=== PATIENT | female | born 1950 | race Caucasian/White ===

== ENCOUNTER 2019-03-23 12:04 | Outpatient (REF) | payer OTHER, SELFPAY ==
--- NOTE | 2019-03-23 10:45 | PAPFT_PTH ---
PATIENT: Renu Mackey LOC: [facility] U#:[id number] AGE/SX: 68/F ROOM: RE03/23/[address]: CHRISTIANO Enriquez : 1950 BED: DIS: 03/23/2019 SPEC #: [id number] RECD: 03/23/19 17:48 STATUS: FOZIA RELauren #: [id number] LORELEI: 03/23/19 10:[address]: Leeanne Valverde DEPT: [facility] Cytology RECD BY: Chantelle Agee Tissues: 1 - CX/ENDOCX FOR PAP SMEARS Procedures: PAP THIN PREP/UVM Screening Comments: [id number]
== END 2019-03-23 12:24 ==
LOC: LBN 12:04
PROVIDERS: Visit Provider Nurse Practitioner Family
DX: Z12.4 Encounter for screening for malignant neoplasm of cervix (principal)
CPT/HCPCS: 88142

== ENCOUNTER 2020-04-01 02:19 | Outpatient (CLI) | payer OTHER, SELFPAY ==
--- NOTE | 2020-04-01 12:00 | DI.MAMMO_ITS ---
EXAM: MG MAMMO SCREENING CLINICAL HISTORY: screening TECHNIQUE: Bilateral full field digital CC and MLO mammographic images were obtained with 3D tomosyn thesis and utilizing computer aided detection (CAD). COMPARISON: Available for comparison. FINDINGS: Masses/Architectural Distortion: None seen. Microcalcifications: No suspicious pleomorphic-type are seen. Skin Thickening/Nipple Retraction: None. IMPRESSION: 1. No significant interval change with no specific features of malignancy noted. 2. Unless there is more urgent need, screening mammography is recommended, as per [employer] guidelines. BI-RADS Category 1 - Negative Breast Density - Category B - Scattered areas of fibroglandular density A negative radiographic report should not delay biopsy if a dominant or clinically suspicious mass is present. Up to ten percent of cancers are not identified on mammography. A negative report may reinforce clinical impression. Adenosis and dense breasts may obscure an underlying neoplasm. False positive reports average 6 to 10%. Patient will receive a letter notifying them of these results.
== END 2020-04-01 02:39 ==
PROVIDERS: PCP Nurse Practitioner Family; Visit Provider Nurse Practitioner Family
DX: Z12.31 Encounter for screening mammogram for malignant neoplasm of breast (principal)
CPT/HCPCS: 77063; 77067

== ENCOUNTER 2021-03-31 11:22 | Outpatient (REF) | payer OTHER, SELFPAY ==
--- NOTE | 2021-03-31 10:45 | PAPFT_PTH ---
PATIENT: Renu Mackey LOC: [facility] U#:[id number] AGE/SX: 70/F ROOM: RE03/31/[address]: CHRISTIANO Enriquez : 1950 BED: DIS: 03/31/2021 SPEC #: [id number] RECD: 03/31/21 17:59 STATUS: FOZIA RELauren #: [id number] LORELEI: 03/31/21 10:[address]: Leeanne Valverde DEPT: [facility] Cytology RECD BY: Chantelle Agee Tissues: 1 - CX/ENDOCX FOR PAP SMEARS Procedures: PAP THIN PREP/UVM Screening HPV DNA PROBE Comments: [id number]
== END 2021-03-31 11:23 | disposition home or self-care (01) ==
LOC: LBN 11:22
PROVIDERS: PCP Nurse Practitioner Family; Visit Provider Nurse Practitioner Family
DX: Z12.4 Encounter for screening for malignant neoplasm of cervix (principal); Z11.51 Encounter for screening for human papillomavirus (HPV); Z01.419 Encounter for gynecological examination (general) (routine) without abnormal findings
CPT/HCPCS: 88142; 87624

== ENCOUNTER 2021-04-16 00:46 | Outpatient (CLI) | payer OTHER, SELFPAY ==
--- NOTE | 2021-04-16 07:50 | DI.MAMMO_ITS ---
Exam(s) MAMMO SCREENING EXAM: MAMMO SCREENING CLINICAL HISTORY: screening. TECHNIQUE: Bilateral full field digital CC and MLO mammographic images were obtained with 3D tomosyn thesis and utilizing computer aided detection (CAD). COMPARISON: Prior mammograms dating back to 2012, the most recent being March 2020. FINDINGS: There has been no significant change in the appearance and distribution of the fibroglandular tissue There are no new spiculated masses nor malignant appearing microcalcification groups. Benign microcalcifications left breast are again noted. There is no significant architectural distortion nor skin thickening-retraction. IMPRESSION: Stable benign findings. No radiographic evidence of malignancy. BI-RADS Category 2 - Benign Findings Breast Density - Category B - Scattered areas of fibroglandular density Breast density Category C or D implies that the patient has dense breast tissue. Dense breast tissue can make it harder to find cancer on a mammogram. Dense breast tissue is also associated with an incr eased risk of breast cancer. This information about the result of the mammogram report was provided to the patient to raise their awareness. Use this report when you speak with the patient about their risks for breast cancer, which includes their family history. At that time, you may recommend additional screening tests (Ultrasoun d or MRI) as these tests may add significant information. A negative radiographic report should not delay biopsy if a dominant or clinically suspicious mass is present. Up to ten percent of cancers are not identified on mammography. A negative report may reinforce clinical impression. Adenosis and dense breasts may obscure an underlying neoplasm. False positive reports average 6 to 10%. Patient will receive a letter notifying them of these results.
== END 2021-04-16 01:06 ==
PROVIDERS: PCP Nurse Practitioner Family; Visit Provider Nurse Practitioner Family
DX: Z12.31 Encounter for screening mammogram for malignant neoplasm of breast (principal); R92.8 Other abnormal and inconclusive findings on diagnostic imaging of breast
CPT/HCPCS: 77063; 77067

== ENCOUNTER 2022-04-03 10:02 | Outpatient (REF) | payer OTHER, SELFPAY ==
--- NOTE | 2022-04-03 09:10 | PAPFT_PTH ---
PATIENT: Renu Mackey LOC: [facility] U#:[id number] AGE/SX: 71/F ROOM: RE04/03/[address]: CHRISTIANO Enriquez : 1950 BED: DIS: 04/03/2022 SPEC #: [id number] RECD: 04/03/22 12:53 STATUS: FOZIA RELauren #: [id number] LORELEI: 04/03/22 09:[address]: Leeanne Valverde DEPT: [facility] Cytology RECD BY: Chantelle Agee Tissues: 1 - CX/ENDOCX FOR PAP SMEARS Procedures: PAP THIN PREP/UVM Screening HPV DNA PROBE Comments: [id number]
== END 2022-04-03 10:03 | disposition home or self-care (01) ==
LOC: LBN 10:02
PROVIDERS: PCP Nurse Practitioner Family; Visit Provider Nurse Practitioner Family
DX: Z12.4 Encounter for screening for malignant neoplasm of cervix (principal); Z11.51 Encounter for screening for human papillomavirus (HPV)
CPT/HCPCS: 88142; 87624

== ENCOUNTER → 2022-05-07 01:23 | Outpatient (CLI) | payer OTHER, SELFPAY ==
--- NOTE | 2022-05-07 08:30 | DI.MAMMO_ITS ---
Exam(s) MAMMO SCREENING EXAM: MAMMO SCREENING CLINICAL HISTORY: screening TECHNIQUE: Bilateral full field digital CC and MLO mammographic images were obtained with 3D tomosyn thesis and utilizing computer aided detection (CAD). COMPARISON: Available for comparison. FINDINGS: Masses/Architectural Distortion: None seen. Microcalcifications: No suspicious pleomorphic-type are seen. Skin Thickening/Nipple Retraction: None. IMPRESSION: 1. No significant interval change with no specific features of malignancy noted. 2. Unless there is more urgent need, screening mammography is recommended, as per [employer] guidelines. BI-RADS Category 1 - Negative Breast Density - Category B - Scattered areas of fibroglandular density Breast density category C or D implies that the patient has dense breast tissue. Dense breast tissue is very common and is not abnormal but dense breast tissue can make it harder to find cancer on a ma mmogram. Also, dense breast tissue may increase their breast cancer risk. This information about the result of the mammogram report was provided to the patient to raise their awareness. Use this report when you speak with the patient about their risks for breast cancer, which includes their family hist ory. At that time, you may recommend for more screening tests (Ultrasound or MRI) as they might be us eful based on their risk. A negative radiographic report should not delay biopsy if a dominant or clinically suspicious mass is present. Up to ten percent of cancers are not identified on mammography. A negative report may reinforce clinical impression. Adenosis and dense breasts may obscure an underlying neoplasm. False positive reports average 6 to 10%. Patient will receive a letter notifying them of these results.
== END ==
PROVIDERS: PCP Nurse Practitioner Family; Visit Provider Nurse Practitioner Family
DX: Z12.31 Encounter for screening mammogram for malignant neoplasm of breast (principal)
CPT/HCPCS: 77063; 77067

== ENCOUNTER 2023-04-23 11:10 | Outpatient (REF) | payer OTHER, MEDICARE, SELFPAY ==
--- NOTE | 2023-04-23 10:30 | PAPFT_PTH ---
PATIENT: Renu Mackey LOC: [facility] U#:[id number] AGE/SX: 72/F ROOM: RE04/23/[address]: Emma Mei DO : 1950 BED: DIS: 04/23/2023 SPEC #: [id number] RECD: 04/23/23 13:11 STATUS: FOZIA REQ #: [id number] LORELEI: 04/23/23 10:[address]: Emma Mei DEPT: [facility] Cytology RECD BY: Chantelle Agee Tissues: 1 - CX/ENDOCX FOR PAP SMEARS Procedures: PAP THIN PREP/UVM Screening HPV DNA PROBE Comments: [id number]
== END 2023-04-23 11:11 | disposition home or self-care (01) ==
LOC: LBN 11:10
PROVIDERS: Visit Provider Obstetrics & Gynecology
DX: Z12.4 Encounter for screening for malignant neoplasm of cervix (principal); Z11.51 Encounter for screening for human papillomavirus (HPV)
CPT/HCPCS: 88142; 87624

== ENCOUNTER 2023-05-10 02:25 | Outpatient (CLI) | payer MEDICARE, SELFPAY ==
--- NOTE | 2023-05-10 07:45 | DI.MAMMO_ITS ---
Exam(s) MAMMO SCREENING EXAM: MAMMO SCREENING CLINICAL HISTORY: screening TECHNIQUE: Mammograms were interpreted according to the usual protocol including computer analysis w [employer] CAD system, tomosynthesis and C-view imaging. COMPARISON: 2013 through 2021 FINDINGS: The breasts are composed of scattered fibroglandular densities, Breast Density category B. No suspicious masses or suspicious microcalcifications are seen. No skin thickening or abnormal axillary lymph nodes are seen. There has been no significant change from prior exams. IMPRESSION: BI-RADS Category 1, Negative mammogram Yearly screening mammography is recommended. Breast Density - Category B, scattered fibroglandular densities. A negative radiographic report should not delay biopsy if a dominant or clinically suspicious mass is present. Up to ten percent of cancers are not identified on mammography. A negative report may reinforce clinical impression. Adenosis and dense breasts may obscure an underlying neoplasm. False positive reports average 6 to 10%. Patient will receive a letter notifying them of these results.
== END 2023-05-10 02:45 ==
LOC: DI 02:26
PROVIDERS: Visit Provider Obstetrics & Gynecology
DX: Z12.31 Encounter for screening mammogram for malignant neoplasm of breast (principal)
CPT/HCPCS: 77063; 77067

== ENCOUNTER → 2024-02-07 10:27 | Outpatient (BNVA) | payer MEDICARE, SELFPAY | PROVIDERS: PCP Legal Medicine; Referring Provider Legal Medicine; Visit Provider Podiatrist | DX: L84 Corns and callosities (principal); B35.1 Tinea unguium; Q82.8 Other specified congenital malformations of skin; M25.572 Pain in left ankle and joints of left foot | CPT/HCPCS: 17110; 99203 ==

== ENCOUNTER → 2024-05-11 01:30 | Outpatient (CLI) | payer MEDICARE, SELFPAY ==
--- OUTSIDE RECORDS SUMMARY | 2024-05-11 01:37 | XMS_ITS | Encounter Summary ---
Author Organization [facility] Address [facility] [place] [address] Care Team Providers Care Crime Prevention Worker Name Role Phone Ann Perdue MD Primary Care Provider [phone] Encounter Details Date Type Department Care Team (Late st Contact Info) Description 08/28/2022 Telephone Dermatology at [facility] [address] [place] [address] Rupert Ye MD [facility] [place] [address] Social History Tobacco Use Types Packs/Day Years Used Date Smoking Tobacco: Never Assessed Sex and Gender Information Value Date Recorded Sex Assigned at Not on file Gender Identity Not on file Sexual Orientation Not on file documented as of this encounter Miscellaneous Notes * Telephone Encounter - Mary Ellen Lopez LPN - 08/28/2022 1:41 PM EDT Mohs consultation and preoperative note (H&P) Patient Name: Renu Mackey Age: 71 y.o. Date of : 1950 Today's Date: 08/28/2022 REFERRING PROVIDER: CC: Mohs micrographic surgery for treatment of a cutaneous tumor HPI: Renu Mackey is a 71 y.o. female presenting for biopsy-proven Melanoma in situ, present at the peripheral specimen edge and deep edge along hair ??follicles, arising in association with nevus location on the Left Moneta The dermatologic preoperative information sheet was reviewed with pertinent positive and negative as below. DERMATOLOGIC PRE-OPERATIVE EVALUATION AND REVIEW OF SYSTEMS She has had her Covid Vaccine and Boosters History of Mohs surgery-No Pacemaker/Defibrillator-No Joint replacement or other implantable devices (e.g. Cochlear implant)-No Do you take a blood thinner-She has been taking Motrin nightly for Arthritis in her knees. History of organ transplant-No History of artificial valve or stroke-No History of liver disease or bleeding disorder-No Do you have any medical problems that may affect your upcoming surgery-No Do you have any concerns regarding your upcoming surgery-No We ask patients to discontinue Fish oil/Multivitamin/Vit E/?? supplements and natural medicines not prescribed by a physician 1 week prior to surgery. SOCIAL HISTORY: Makes Own Decisions Yes Hearing aid or other devices: No Relevant travel history or future plans: No Tobacco use (amount per day, type of tobacco):No Do you have any physical limitations that may affect your surgery-No ALLERGIES: Allergies reviewed MEDICATIONS: Medications reviewed documented in this encounter Plan of Treatment Upcoming Encounters Date Type Department Care Team (Late st Contact Info) Description 12/11/2024 2:00 PM EST Office Visit Dermatology at [address] [address] Bianka Jaffe MD [facility] [address] [place] [address] documented as of this encounter Visit Diagnoses Not on filedocumented in this encounter Care Teams Crime Prevention Worker Relationship Specialty Start Date End Date Ann Perdue MD [facility] [address] PCP - General General Internal Medicine 06/25/22 documented as of this encounter
--- OUTSIDE RECORDS SUMMARY | 2024-05-11 01:37 | XMS_ITS | Encounter Summary ---
Author Organization [facility] Address [facility] [place] [address] Care Team Providers Care Tin Can Feeder Name Role Phone Ann Perdue MD Primary Care Provider [phone] Encounter Details Date Type Department Care Team (Late st Contact Info) Description 07/13/2022 Telephone Dermatology at [facility] [address] [place] [phone] Elizabeth Baca MD [facility] DR JAMEE [place] [address] Social History Tobacco Use Types Packs/Day Years Used Date Smoking Tobacco: Never Assessed Sex and Gender Information Value Date Recorded Sex Assigned at Not on file Gender Identity Not on file Sexual Orientation Not on file documented as of this encounter Miscellaneous Notes * Telephone Encounter - Suzanne Saldana - 07/13/2022 1:40 PM EDT I left a message for Renu Brianne Mcakey to get her scheduled for a 3 month FSE and LN2 of an AK with . * Telephone Encounter - Suzanne Saldana - 07/13/2022 1:39 PM EDT ----- Message from Elizabeth Baca MD sent at 07/02/2022 2:24 PM EDT ----- Called patient to discuss biopsy results which showed: DIAGNOSIS A - L eft voodoo, skin shave biopsy: - ??Melanoma in situ, present at the peripheral specimen edge and deep edge along hair ??follicles, arising in association with nevus (see Discussion) B - R ight lateral lower eyelid, skin shave biopsy: - Pigmented ??actinic keratosis/lentigo Discussed findings with patient which showed MIS at site A and AK at site B. Recommend Mohs at siteA and LN2 at site B. Patient agreable to plan. Will place referral today. Will plan for 3 month FBSE and will also need LN2 to site B- please schedule documented in this encounter Plan of Treatment Upcoming Encounters Date Type Department Care Team (Late st Contact Info) Description 12/11/2024 2:00 PM EST Office Visit Dermatology at [facility] [address] [place] [address] Bianka Jaffe MD [facility] DR JAMEE [place] [address] documented as of this encounter Visit Diagnoses Not on filedocumented in this encounter Care Teams Tin Can Feeder Relationship Specialty Start Date End Date Ann Perdue MD [facility] [place] [address] PCP - General General Internal Medicine 06/25/22 documented as of this encounter
--- OUTSIDE RECORDS SUMMARY | 2024-05-11 01:37 | XMS_ITS | Encounter Summary ---
Author Organization [facility] Address [facility] [place] [address] Care Team Providers Care Ship/Rec/Doc Control Name Role Phone Ann Perdue MD Primary Care Provider [phone] Encounter Details Date Type Department Care Team (Latest Contact Info) Description 08/31/2022 Travel Social History Tobacco Use Types Packs/Day Years Used Date Smoking Tobacco: Never Assessed Sex and Gender Information Value Date Recorded Sex Assigned at Not on file Gender Identity Not on file Sexual Orientation Not on file documented as of this encounter Plan of Treatment Upcoming Encounters Date Type Department Care Team (Late st Contact Info) Description 12/11/2024 2:00 PM EST Office Visit Dermatology at [facility] [address] [place] [address] Bianka Jaffe MD [facility] [address] [place] [address] documented as of this encounter Visit Diagnoses Not on filedocumented in this encounter Care Teams Ship/Rec/Doc Control Relationship Specialty Start Date End Date Ann Perdue [place] [address] [place] [address] PCP - General General Internal Medicine 06/25/22 documented as of this encounter
--- OUTSIDE RECORDS SUMMARY | 2024-05-11 01:37 | XMS_ITS | Encounter Summary ---
Author Organization [facility] Address [facility] [place] [address] Care Team Providers Care Tuna Purse Seiner Name Role Phone Ann Perdue MD Primary Care Provider [phone] Encounter Details Date Type Department Care Team (Latest Contact Info) Description 09/30/2022 Travel Social History Tobacco Use Types Packs/Day [...] 2:00 PM EST Office Visit Dermatology at [facility] [address] [place] [address] Bianka Jaffe MD [facility] [address] [place] [address] documented as of this encounter Visit Diagnoses Not on filedocumented in this encounter Care Teams Tuna Purse Seiner Relationship Specialty Start Date End Date Ann Perdue [place] [address] [place] [address] PCP - General General Internal Medicine 06/25/22 documented as of this encounter
--- OUTSIDE RECORDS SUMMARY | 2024-05-11 01:37 | XMS_ITS | Encounter Summary ---
Author Organization [facility] Address [facility] [address] Care Team Providers Care Road Consultant Name Role Phone Ann Perdue MD Primary Care Provider [phone] Encounter Details Date Type Department Care Team (Late st Contact Info) Description 08/10/2023 Telephone Dermatology at [facility] [address] [address] Collette Ocampo Social History Tobacco Use Types Packs/Day Years [...] 2:00 PM EST Office Visit Dermatology at [facility] [address] [place] [phone] Bianka Jaffe MD [facility] [address] [place] [address] documented as of this encounter Visit Diagnoses Not on filedocumented in this encounter Care Teams Road Consultant Relationship Specialty Start Date End Date Ann Perdue MD [facility] [place] [address] PCP - General General Internal Medicine 06/25/22 documented as of this encounter
--- OUTSIDE RECORDS SUMMARY | 2024-05-11 01:37 | XMS_ITS | Encounter Summary ---
Author Organization [facility] Address [facility] [place] [address] Care Team Providers Care Dip Painter Name Role Phone Ann Perdue MD Primary Care Provider [phone] Encounter Details Date Type Department Care Team (Latest Contact Info) Description 02/13/2023 Travel Social History Tobacco Use Types Packs/Day [...] 2:00 PM EST Office Visit Dermatology at [facility] [address] [place] [address] Bianka Jaffe MD [facility] [address] [place] [address] documented as of this encounter Visit Diagnoses Not on filedocumented in this encounter Care Teams Dip Painter Relationship Specialty Start Date End Date Ann [place] [address] [place] [address] PCP - General General Internal Medicine 06/25/22 documented as of this encounter
--- OUTSIDE RECORDS SUMMARY | 2024-05-11 01:37 | XMS_ITS | Encounter Summary ---
Author Organization [facility] Address [facility] [place] [address] Care Team Providers Care Head Operator Name Role Phone Ann Perdue MD Primary Care Provider [phone] Encounter Details Date Type Department Care Team (Latest Contact Info) Description 09/13/2023 Travel Social History Tobacco Use Types Packs/Day [...] 2:00 PM EST Office Visit Dermatology at [facility] [address] [place] [address] Bianka Jaffe MD [facility] [address] [place] [address] documented as of this encounter Visit Diagnoses Not on filedocumented in this encounter Care Teams Head Operator Relationship Specialty Start Date End Date Ann Perdue [place] [address] [place] [address] PCP - General General Internal Medicine 06/25/22 documented as of this encounter
--- OUTSIDE RECORDS SUMMARY | 2024-05-11 01:37 | XMS_ITS | Encounter Summary ---
Author Organization [facility] Address [facility] [place] [address] Care Team Providers Care Mat Sewer Name Role Phone Ann Perdue MD Primary Care Provider [phone] Encounter Details Date Type Department Care Team (Late st Contact Info) Description 09/30/2022 8:20 AM EST Office Visit Dermatology at [facility] [address] [place] [address] Elizabeth Baca MD [facility] [place] [address] Actinic keratoses; Seborrheic keratoses; Multiple nevi; Lentigines; Ontiveros angioma; History of melanoma in situ; Neoplasm of unspecified behavior of bone, soft tissue, and skin Social History Tobacco Use Types Packs/Day Years Used Date Smoking Tobacco: Never Assessed Sex and Gender Information Value Date Recorded Sex Assigned at Not on file Gender Identity Not on file Sexual Orientation Not on file documented as of this encounter Progress Notes * Elizabeth Baca - 09/30/2022 8:20 AM EST Images from the original note were not included. DEPARTMENT OF DERMATOLOGY Medical Dermatology Clinic Provider: Elizabeth Baca MD Patient's preferred name Renu Preferred contact method for results [x]Phone []myD-H []Letter Detailed phone message OK? Yes Are there any other people with whom we may discuss your care? No Past Medical History Date, location, treatment Melanoma Yes - 06/25/22; MIS left yazidism s/p MOHs Dysplastic nevi No SCC No BCC No AKs No UV Exposure & Protection + history of tanning bed use + history of blistering sunburn Other relevant past medical history No Family History Details Melanoma No NMSC Yes - Brother Other relevant family history No Social History Occupation: Hobbies: Other: Pre-Procedure Screening Details Allergy to lidocaine, epinephrine, Dermabond, chlorhexidine, or adhesives No Bleeding disorder or blood thinners No Implanted devices (Pacemaker, defibrillator, deep brain stimulator, cochlear implant) No History of Present Illness: Renu Mackey is a 71 y.o. Patient returns to clinic today for a full skin exam. Patient denies any specific skin concerns today; no lesions that are new, changing or symptomatic.. Last visit at Dermatology: 06/25/2022 Last visit with this provider: 06/25/2022 Medications: Reviewed in eD-H Allergies: Reviewed in eD-H Skin Examination: Full skin examination: Patient asked to undress to their comfort level. Verbalized that the provider's preference is that patient remove all clothing and that the provider will not examine areas patient elects to keep covered. Examination of the scalp, hair, head, face, ears, neck, chest, axillae, abdomen, back, buttocks, and upper and lower extremities was normal with the exception of the findings below. Genitalia not examined. Assessment/Plan #. Nevus R/O Atypia - 1cm brown macule on the mid central back (Figure 1). - Recommended a skin biopsy to confirm/clarify the nature of the skin lesion. After discussion of potential risks (scarring, bleeding, infection) and recurrence, patient agreed to proceed. - Patient denies known allergies to lidocaine and epinephrine. Procedure: Skin shave biopsy Location: Mid Central back Time of procedure: 8:20 AM Discussed indications for procedure and expectations including risks and benefits. Verbal consent obtained. Time out performed. Skin prepped with alcohol. Local anesthesia with 1% xylocaine, 1/100,000 epinephrine. A sample of the lesion was removed by shave technique to the level of the dermis and s ubmitted to Pathology. Hemostasis obtained. There were no complications; patient tolerated the procedure well. Wound dressed. Post-procedure expectations, wound care and activity restrictions reviewed. - Follow-up based on pathology results. #. Actinic Keratoses - Ill-defined gritty papules on the right lateral lower eyelid x1, and on the nasal tip x1. - Explained premalignant potential of these lesions. - Discussed treatment with cryotherapy. Patient elects to proceed with cryotherapy today. - Instructed patient to return to clinic for re-evaluation if lesion(s) does not resolve as expected with this treatment. Procedure: Destruction of lesion(s) with cryotherapy (LN2). Location(s): As noted above. Number: 2 Discussed procedure and expectations, including risks and benefits. Verbal consent obtained. Treated with LN2. There were no complications; Patient tolerated the procedure well. Post-procedure expectations and wound care reviewed. #. Seborrheic Keratoses - Stuck on, waxy papules on the trunk and extremities. - Discussed benign nature of lesions and provided reassurance. No treatment necessary at this time. #. Benign Nevi - Scattered medium brown, evenly pigmented macules and papules on the trunk and extremities with reassuring pigment pattern on dermoscopy. - Discussed benign nature of lesions and provided reassurance. Will continue to monitor. #. Lentigines - Scattered light-brown, evenly pigmented, well-demarcated macules on sun-exposed areas of the trunk and extremities. - No worrisome pigmented lesions. Discussed benign nature of lesions and provided reassurance. Willcontinue to monitor. #. Ontiveros Angiomas - Multiple bright red, well-demarcated papules on the trunk and extremities. - Discussed benign nature of lesions and provided reassurance. No treatment necessary at this time. #. History of MIS - Well-healed scar on the left yazidism per skin history. - No evidence of recurrence; will continue to monitor. (Figure 2) Figure 1 Figure 2 Photo(s) taken and charted with patient's verbal consent. Other: ??? Sun protection discussed (protective clothing and SPF30+ broad-spectrum sunscreen) RTC: 3 months for a full skin exam. []Note routed to secretary of state []Recall placed in scheduling system [x]Appointment scheduled at checkout Scribe attestation: CHARLES Pathak has performed the documentation for this encounter in the presence of and acting as a scribe for Elizabeth Baca MD. I performed the above scribed service and agree with the accuracy of the documentation in this encounter. Reviewed and signed by: Elizabeth Baca MD Dermatology [facility] Patient seen and evaluated with staff hydraulic press operator: Viola Pereira MD Dermatology [facility] * Viola Pereira MD - 09/30/2022 8:20 AM EST I was the supervising physician working with the dermatology resident during this patient's visit. The level of resident supervision for this patient visit was indirect supervision with direct supervision immediately available (definition: [facility] GME Policy Statement on Graduate Medical Education, Sup ervision of Graduate Medical Trainees). I was immediately available to the resident physician for questions and discussion regarding this visit. I have reviewed the encounter note details and level of service. Viola Pereira MD Staff Physician * Elizabeth Baca - 09/30/2022 8:20 AM EST Called patient to discuss biopsy results which showed: DIAGNOSIS Mid central back, skin shave biopsy: - ??Compound dysplastic ??melanocytic nevus with mild atypia, not identified at the ??specimen edges in the examined planes of section Discussed findings with patient. Discussed NTD at this time. Will monitor for any pigment recurrence. documented in this encounter Plan of Treatment Upcoming Encounters Date Type Department Care Team (Late st Contact Info) Description 12/11/2024 2:00 PM EST Office Visit Dermatology at [facility] [address] [place] [address] Bianka Jaffe MD [facility] [address] [place] [address] documented as of this encounter Procedures Procedure Name Priority Date/Time Associated Diagnosis Comments SPECIMEN TO PATHOLOGY Routine 09/30/2022 8:31 AM EST Neoplasm of unspecified behavior of bone, soft tissue, and skin SURGICAL PATHOLOGY REPORT Routine 09/30/2022 8:20 AM EST documented in this encounter Results * Specimen to Pathology (09/30/2022 8:31 AM EST) AP Specimen 09/30/2022 8:31 AM EST 09/30/2022 8:31 AM EST Narrative [facility] - 09/30/2022 8:31 AM EST Specimen requisition ordered. ??Separate Pathology report to follow Viola Pereira MD PATHOLOGY/CYTOLOGY Emily JOHNSON Performing Organization Address City/State/[facility] Co de Phone Number [facility] [place] [address] * Surgical Pathology Report (09/30/2022 8:20 AM EST) Surgical Pathology Report [id number] ? Location: [facility] The signing pathologist has (i) examined the relevant preparation(s) for the specimen(s) and (ii) rendered or confirmed the diagnosis(es). . ?Surgical Pathology DIAGNOSIS Mid central back, skin shave biopsy: - ??Compound dysplastic ??melanocytic nevus with mild atypia, not identified at the specimen edges in the examined planes of section Electronically signed by: ?Caren Padilla MD Verified: ??10/02/2022 15:39 ??Dermatopatholo gist Performed at: ??-[facility] Dept. of Pathology, [place] [address] Therapy Teacher: Dc Real MD, FCAP, ??CLIA Certificate: [id number] SPECIMEN(S) SUBMITTED A - Mid central back, skin shave biopsy (1) CLINICAL INFORMATION Nevus rule out atypia-1 cm brown macule SPECIMEN PROCESSING A - Labeled/Fixative : Patient demographics, formalin. Quantity/Size: ??Single, 1.1 x 0.9 x 0.1 cm. Tissue Description: Shave of cordova-pink skin with a 0.5 x 0.3 cm cordova brown macule. Sections/Process ing: Inked, quadrisected and entirely submitted in 2 cassettes as follows: ?A1: ??Tips ?A2: ??Body ??nrl [facility] 09/30/2022 8:20 AM EST Elizabeth Baca MD PATHOLOGY/CYTOLOGY ORDERABLES [facility] [place] [id number] documented in this encounter Visit Diagnoses Diagnosis Actinic keratoses Actinic keratosis Seborrheic keratoses Multiple nevi Benign neoplasm of skin, site unspecified Lentigines Other dyschromia Ontiveros angioma Nevus, non-neoplastic History of melanoma in situ Personal history of malignant melanoma of skin Neoplasm of unspecified behavior of bone, soft tissue, and skin documented in this encounter Care Teams Mat Sewer Relationship Specialty Start Date End Date Ann Perdue MD [facility] [place] [address] PCP - General General Internal Medicine 06/25/22 documented as of this encounter
--- OUTSIDE RECORDS SUMMARY | 2024-05-11 01:37 | XMS_ITS | Encounter Summary ---
Author Organization [place] [address] Care Team Providers Care Diesel Powerplant Mechanic Name Role Phone Ann Perdue MD Primary Care Provider [phone] Encounter Details Date Type Department Care Team (Late st Contact Info) Description 08/04/2023 10:15 AM EDT Office Visit Dermatology at [facility] [address] [place] [address] Elizabeth Baca MD [address] [place] [address] Neoplasm of unspecified behavior of bone, soft tissue, and skin; Seborrheic keratoses; Multiple nevi; Lentigines; Ontiveros angioma; History of melanoma in situ; History of dysplastic nevus Social History Tobacco Use Types Packs/Day Years Used Date Smoking Tobacco: Never Assessed Sex and Gender Information Value Date Recorded Sex Assigned at Not on file Gender Identity Not on file Sexual Orientation Not on file documented as of this encounter Progress Notes * Elizabeth Baca MD - 08/04/2023 10:15 AM EDT Images from the original note were not included. DEPARTMENT OF DERMATOLOGY Medical Dermatology Clinic Provider: Elizabeth Baca MD Patient's preferred name Renu Preferred contact method for results [x]Phone []myD-H []Letter Detailed phone message OK? Yes Are there any other people with whom we may discuss your care? No Past Medical History Date, location, treatment Melanoma Yes - 06/25/2022: Left yarsani, MIS, s/p Mohs 08/31/2022 Dysplastic nevi Yes - 09/30/2022: Mid central back, Compound dysplastic nevus with mild atypia, notidentified at specimen edges SCC No BCC No AKs No UV Exposure & Protection + history of tanning bed use + history of blistering sunburn Other relevant past medical history No Family History Details Melanoma Yes - Brother NMSC Yes - Brother; BCC Other relevant family history No Social History Occupation: Hobbies: Other: Pre-Procedure Questions Details Allergy to lidocaine, epinephrine, Dermabond, chlorhexidine, or adhesives No Bleeding disorder or blood thinners No Pacemaker, defibrillator, deep brain stimulator, cochlear implant No History of Present Illness: Renu Mackey is a 72 y.o. Patient returns to clinic today for a full skin exam. Last visit at Dermatology: 02/13/2023 Last visit with this provider: 02/13/2023 Medications: Reviewed in eD-H Allergies: Reviewed in eD-H Skin Examination: Full skin examination: Patient asked to undress to their comfort level. Verbalized that the provider's preference is that the patient remove all clothing and that the provider will not examine areas patient elects to keep covered. Examination of the scalp, hair, head, face, ears, neck, chest, axillae, abdomen, back, buttocks, and upper and lower extremities was normal with the exception of the findings below. Genitalia not examined. Assessment/Plan A. R/O BCC - 1cm pink pearly plaque on the left cheek (Figure 1). - Recommended a skin biopsy to confirm/clarify the nature of the skin lesion. After discussion of potential risks (scarring, bleeding, infection) and recurrence, patient agreed to proceed. - Patient denies known allergies to lidocaine and epinephrine. Procedure: Skin shave biopsy Location: Left cheek Time of procedure: 10:29 AM Discussed indications for procedure and expectations including risks and benefits. Verbal consent obtained. Time out performed. Skin prepped with alcohol. Local anesthesia with 1% xylocaine, 1/100,000 epinephrine. A sample of the lesion was removed by shave technique to the level of the dermis and s ubmitted to Pathology. Hemostasis obtained (AlCl). There were no complications; patient tolerated the procedure well. Wound dressed. Post-procedure expectations, wound care and activity restrictions reviewed. - Follow-up based on pathology results. B. Nevus R/O Atypia - 7mm x 3mm brown macule on the left plantar foot (Figure 1). - Recommended a skin biopsy to confirm/clarify the nature of the skin lesion. After discussion of potential risks (scarring, bleeding, infection) and recurrence, patient agreed to proceed. - Patient denies known allergies to lidocaine and epinephrine. Procedure: Skin shave biopsy Location: Left plantar foot Time of procedure: 10:26 AM Discussed indications for procedure and expectations including risks and benefits. Verbal consent obtained. Time out performed. Skin prepped with alcohol. Local anesthesia with 1% xylocaine, 1/100,000 epinephrine. A sample of the lesion was removed by shave technique to the level of the dermis and s ubmitted to Pathology. Hemostasis obtained (AlCl). There were no complications; patient tolerated the procedure well. Wound dressed. Post-procedure expectations, wound care and activity restrictions reviewed. - Follow-up based on pathology results. #. Seborrheic Keratoses - Stuck on, waxy [...] at this time. #. History of MIS and DN - Well-healed scars per skin history. - No evidence of recurrence; will continue to monitor. Figure 1 Figure 2 Other: N/A RTC: Pending Pathology 1 year for a full skin exam. []Note routed to escrow secretary [x]Recall placed in scheduling system []Appointment scheduled at checkout Scribe attestation: Estefany Fitzgerald CMA has performed the documentation for this encounter in the presence of and acting as a scribe for Elizabeth Baca MD. I performed the above scribed service and agree with the accuracy of the documentation in this encounter. Reviewed and signed by: Elizabeth Baca MD Dermatology [facility] * Elizabeth Baca MD - 08/04/2023 10:15 AM EDT Renny Lockhart- Could you let Renu know that the spot on her cheek came back showing a basal cell and would recommend Mohs? The foot came back benign so all is well! * Chantelle Araiza LPN - 08/04/2023 10:15 AM EDT Spoke with patient regarding her biopsy results. Per Dr. Baca it showed a BCC and recommends the Mohs procedure. Pt understands that Leah will call to schedule. documented in this encounter Plan of Treatment Upcoming Encounters Date Type Department Care Team (Late st Contact Info) Description 12/11/2024 2:00 PM EST Office Visit Dermatology at [facility] [address] [place] [address] Bianka Jaffe MD [facility] DR [address] [address] documented as of this encounter Procedures Procedure Name Priority Date/Time Associated Diagnosis Comments SPECIMEN TO PATHOLOGY Routine 08/04/2023 11:21 AM EDT Neoplasm of unspecified behavior of bone, soft tissue, and skin SPECIMEN TO PATHOLOGY Routine 08/04/2023 11:21 AM EDT Neoplasm of unspecified behavior of bone, soft tissue, and skin SURGICAL PATHOLOGY REPORT Routine 08/04/2023 10:30 AM EDT documented in this encounter Results * Specimen to Pathology (08/04/2023 11:21 AM EDT) AP Specimen 08/04/2023 11:2 1 AM EDT 08/04/2023 11:21 AM EDT Narrative [facility] - 08/04/2023 11:21 AM EDT Specimen requisition ordered. ??Separate Pathology report to follow Elizabeth Baca MD PATHOLOGY/CYTOLOGY ORDERABLES Performing Organization Address [facility] [place] [address] * Specimen to Pathology (08/04/2023 11:21 AM EDT) AP Specimen 08/04/2023 11:2 1 AM EDT 08/04/2023 11:21 AM EDT Narrative [facility] - 08/04/2023 11:21 AM EDT Specimen requisition ordered. ??Separate Pathology report to follow Elizabeth Baca MD PATHOLOGY/CYTOLOGY ORDERABLES Performing Organization Address [facility] [place] [address] * (ABNORMAL) Surgical Pathology Report (08/04/2023 10:30 AM EDT) Pathologist [facility] Surgical Pathology Report [id number] ? Location: [facility] The signing pathologist has (i) examined the relevant preparation(s) for the specimen(s) and (ii) rendered or confirmed the diagnosis(es). . ?Surgical Pathology DIAGNOSIS A - Left cheek, skin shave biopsy: - ??Basal cell carcinoma, superficial and nodular subtypes, ?? not identified at the specimen edges in the examined planes of section - Incidental intradermal melanocytic nevus, ?close to the specimen edges in the examined planes of section B - Left plantar foot, skin shave biopsy: - ??Compound melanocytic nevus, not identified at the specimen edges in the examined planes of section Electronically signed by: ?Caren Padilla MD Verified: ??08/12/2023 11:02 ??Dermatopatholo gist Performed at: ??-[facility] Dept. of Pathology, [place] [address] Cotton Expert: Dc Real MD, FCAP, ??CLIA Certificate: [id number] DISCUSSION THIS RESULT REQUIRES PHYSICIAN/A.P.P. FOLLOW UP ADDITIONAL STUDIES A, B - The anatomic sites have been reviewed and corrected above. SPECIMEN(S) SUBMITTED A - Left cheek, skin shave biopsy (1) - B - Left plantar foot, skin shave biopsy (1) CLINICAL INFORMATION A - Rule out BCC-1 cm pink pearly plaque on the left cheek B - Nevus R/O atypia 7 x 3 mm brown macule on the left plantar foot SPECIMEN PROCESSING A - Labeled/Fixative : Left cheek, formalin. Quantity/Size: ??Single, 0.6 x 0.5 x 0.1 cm. Tissue Description: Shave of white skin. Sections/Process ing: Inked, bisected and entirely submitted in 1 cassette labeled A1. B - Labeled/Fixative : left plantar foot, formalin. Quantity/Size: ??Single, 1.0 x 0.7 x 0.2 cm. Tissue Description: Shave of white skin. Sections/Process ing: Inked, quadrisected and entirely submitted in 1 cassette labeled B1. ??sdy(A) [facility] 08/04/2023 10:3 0 AM EDT Elizabeth Baca MD PATHOLOGY/CYTOLOGY ORDERABLES [facility] [place] [address] documented in this encounter Visit Diagnoses Diagnosis Neoplasm of unspecified behavior of bone, soft tissue, and skin Seborrheic keratoses Multiple nevi Benign neoplasm of skin, site unspecified Lentigines Other dyschromia Ontiveros angioma Nevus, non-neoplastic History of melanoma in situ Personal history of malignant melanoma of skin History of dysplastic nevus Personal history of diseases of skin and subcutaneous tissue documented in this encounter Care Teams Diesel Powerplant Mechanic Relationship Specialty Start Date End [place] [address] PCP - General General Internal Medicine 06/25/22 documented as of this encounter
--- OUTSIDE RECORDS SUMMARY | 2024-05-11 01:37 | XMS_ITS | Encounter Summary ---
Author Organization [facility] Address [facility] [place] [address] Care Team Providers Care Insurance Processing Clerk Name Role Phone Ann Perdue MD Primary Care Provider [phone] Reason for Visit * Consultation (Routine) - Closed Specialty Diagnoses / Procedures Referred By Contac t Referred To Contact Dermatology Diagnoses Basal cell carcinoma (BCC), unspecified site Elizabeth Baca MD [address] [place] [address] Rupert Ye MD [facility] DR JAMEE CRU[facility] [place] [phone] Referral ID Status Reason Start Date Expiration Date V isits Requested Visits Authorized [id number] Closed Consult, Test & Treat 08/16/2023 08/15/2024 1 1 Encounter Details Date Type Department Care Team (Latest Contact Info) Description 09/13/2023 12:00 PM EST Procedure visit Dermatology at [facility] [address] [place] [address] Rupert Ye MD [facility] DR JAMEE [facility] [phone] Basal cell carcinoma (BCC) of left jain region Social History Tobacco Use Types Packs/Day Years Used Date Smoking Tobacco: Never Assessed Sex and Gender Information Value Date Recorded Sex Assigned at Not on file Gender Identity Not on file Sexual Orientation Not on file documented as of this encounter Last Filed Vital Signs Vital Sign Reading Time Taken Comments Blood Pressure 150/95 09/13/2023 11:46 AM EST Pulse 89 09/13/2023 11:46 AM EST Temperature - - Respiratory Rate - - Oxygen Saturation - - Inhaled Oxygen Concentration - - Weight - - Height - - Body Mass Index - - documented in this encounter Progress Notes * Rupert Ye MD - 09/13/2023 12:00 PM EST Images from the original note were not included. Summary of Procedure(s): Site: left cheek Tumor Type: basal cell carcinoma, superficial and nodular Stages to clear tumor: 2 Repair: linear closure Images: The patient was asked to call with any issues and is aware that I am available 17/05 should questions arise. Rupert Ye MD PhD Mohs Micrographic Surgery and Dermatologic Oncology Department of Dermatology Please note that I have reviewed the preoperative checklist from today's nursing visit including relevant social history and medications. I have reviewed the preoperative photos if available and the biopsy report. VITAL SIGNS: BP (!) 150/95 (BP Location (NBP): Left arm, Patient Position: Sitting, BP Cuff Sizes: Adult (25-34 cm)) Pulse 89 PHYSICAL EXAMINATION: General: patient is awake, alert, oriented and in no acute distress. Skin: Focused examination of surgical site(s) performed which shows a well healed biopsy site with surrounding poorly defined pearly plaque. PHYSICIAN REVIEW OF REPORTS, RECORDS, IMAGES: 1) The accompanying pathology report(s) associated with aforementioned biopsy slide(s) were/was also reviewed. Assessment: Renu Mackey is a 72 y.o. female presenting for: 1. Biopsy-proven basal cell carcinoma, superficial and nodular located on the left cheek. Plan: 1. Findings from the biopsy report, today's clinical exam, and other pertinent details were reviewed with patient today. All questions were answered. 2. Discussed treatment options based on the above findings. We recommended Mohs micrographic surgery for treatment of this tumor. Mohs micrographic surgery was indicated due to patient, site and/or tumor characteristics (see operative report for specific indication). 3. We discussed risks, benefits, and alternative treatment options to the Mohs micrographic surgeryprocedure and pertinent information including but not limited to the following: Risks include bleeding, infection, scar, recurrence, incomplete tumor removal or inability to cure with surgery alone if the tumor features are more aggressive than the initial pathology indicates. Occasionally, additional adjuvant treatments may be recommended. Additional risks include large wound, prolonged wound and healing, pain, swelling, bruising, increased appearance of vessels or worsening erythema of baseline skin; more rarely risks include damage to underlying structures such as nerves, cartilage, or muscle which could lead to temporary or permanent loss of sensation or motor function. Benefit is precise tumor removal If reconstruction is performed, it is specific to the patient and defect. Discussed that the shape, size, depth of the wound is often not known until the tumor is cleared and thus the reconstruction options are sometimes not known until after tumor clearance. Occasionally,referrals to other providers may be recommended for reconstruction based on patient preference and need. Reviewed the pros and cons of common reconstructions used for this tumor type, size, and location, and that reconstruction may lead to change in appearance. Natural history of scar was discussed, including that the scar will continue to mature for 1-2 years. Recommended avoidance of special ointments or scar creams, and avoidance of direct sun exposure to the scar for optimal recovery. Reviewed that there are some aspects of cosmesis that are dependent on patient's characteristics such as age, skin laxity/texture factors, inflammatory skin diseases such as rosacea, prior surgery/radiation, degree of actinic damage, smoking status, strength of the patient's immune system, diligentwound care, medications, and genetics. Having Mohs surgery may lead to physical limitations for optimal healing, such as restricted physical activity and heavy lifting. 4. Signs and symptoms of skin cancer reviewed. Patient to report any new, changing, or symptomatic lesions and follow up with his or her barrel repairer or other skin provider. 5. Discussed avoiding direct sun exposure to scars for best cosmetic result. Note initiated by OVIDIO Rivera LNA has performed the documentation for this encounter in the presence of and acting as a scribe for Dr. Ye I performed the above scribed service and agree with the accuracy of the documentation in this encounter. Reviewed and signed by: Rupert Ye Dermatology [facility] * Rupert Ye MD - 09/13/2023 12:00 PM EST Mohs micrographic Surgery Operative Report Patient name: Renu Mackey : 1950 Date: 09/13/2023 Staff Surgeon and Pathologist: Rupert Ye MD PhD Nursing/Operations And Maintenance Technican(s): Candy Delgado [facility] Resource Paraprofessional (s): Criss Reyes, Pre-operative diagnosis: basal cell carcinoma, superficial and nodular Post-operative diagnosis: Same Location/Site: Left cheek Procedure: Mohs micrographic surgery Indication(s) for Mohs micrographic surgery: Anatomic location for tissue conservation Stages: 2 Preoperative size of tumor: 1.1 x 0.5 cm Stage I The nature and purpose of the procedure, associated risks, possible consequences and complications,and alternative forms of treatment were explained in detail. We reviewed the possible repairs basedon the clinical appearance of tumor but discussed that often the repair options may not be known until the tumor has anthony extirpated. Informed consent and permission to take photographs were obtained. The site was confirmed with the patient/authorized risk control representative/referring physician and/or a photograph form time of biopsy. A pre-operative time-out (procedural pause) was conducted with no unresolved discrepancies noted. Local anesthesia was obtained with 0.5 % lidocaine with 1:200,000 epinephrine. The surgical site was prepped and draped in the usual sterile manner. A 1-2 mm margin was excised around clinically evident tumor as a complete layer. Hemostasis was achieved by electrocoagulation. The excised tissue was oriented and divided into 2 sections, chromacoded, and submitted for frozen sections. The patient tolerated the procedure well and without complications. On my personal microscopic evaluation of the frozen sections, residual tumor was identified as SUPERFICIAL BASAL CELL CARCINOMA - Extending from the epidermis and superficial hair follicles are multicentric buds of basaloid keratinocytes. The nuclei at the periphery of the islands have a palisaded arrangement. The tumor islands are associated with a fibromyxoid stroma and there is cleft formationbetween some of the islands and stroma. and INFILTRATIVE BASAL CELL CARCINOMA -- Irregularly shapednarrow cords, thin strands, and small islands of basaloid keratinocytes are present in the dermis with an infiltrating and angulated growth pattern. The cells have scant cytoplasm and round dark nuclei. The islands are associated with a fibromyxoid stroma and there is cleft formation between some of the islands and stroma. on section A2 (see section number on map). Stage II The surgical site was re-anesthetized with 0.5 % lidocaine with 1:200,000 epinephrine, re-prepped and redraped in a sterile manner. The residual tumor was re-excised as a complete layer 2-3mm in thickness using the Mohs map to delineate area of residual tumor. Hemostasis was achieved with electrocoa gulation. The tissue was oriented and divided into 1 sections, chromacoded, and submitted for frozen sections. The patient tolerated the procedure well and without complications. On my personal microscopic evaluation of the frozen sections, no residual tumor was identified on the deep or outer border of the sections. Depth of excision subcutaneous tissue Final defect size: 2.0 x 1.5 cm Rupert Ye MD PhD Mohs Micrographic Surgery and Dermatologic Oncology Department of Dermatology [address] [place] [address] Repair Operative Report Clinical Diagnosis: 2.0 x 1.5 cm surgical defect secondary to Mohs microscopically controlled excision Location/Site: Left cheek Indication: repair of wound for anatomic/functional uatsdin Procedure: Intermediate linear closure of Mohs defect Substation Wireman: Darshan Carmona MD, OVIDIO Rivera Due to the size and location of the defect resulting from the complete removal of the tumor, the postoperative risk of hemorrhage, infection, and the possibility of serious deformity from scarring, and in order to restore proper function and prevent loss of function, the defect was closed in the following manner. The nature and purpose of the procedure, associated risks, possible consequences, complications andalternative methods of treatment were explained to the patient in detail. An informed consent was obtained. The operative site was anesthetized with 0.5% lidocaine with 1:200,000 epinephrine. The site was prepped and draped in the usual sterile manner. Moderate undermining of the surrounding tissuewas performed for tension free closure as necessary and redundant tissue excised. The deep tissues were apposed and sutured with 4-0 Monocryl sutures and the epidermal edges were approximated with 6-0 Fast Absorbing Gut running and/or interrupted sutures. .The resulting intermediate linear closure measured 4.5 cm. The surgical site was cleaned and white petrolatum with a pressure dressing was applied. The patient tolerated the procedure well and without complications and was given both verbal and written instruction on postoperative wound care. Follow up as needed. The patient was discharged in good condition. Total local anesthesia with 0.5 % lidocaine with 1:200,000 epinephrine used: 5 cc Rupert Ye MD PhD Mohs Micrographic Surgery and Dermatologic Oncology Department of Dermatology [address] [place] [address] Note initiated by OVIDIO Rivera. OVIDIO Rivera has performed the documentation for this encounter in the presence of and acting as a scribe for Dr. Ye I performed the above scribed service and agree with the accuracy of the documentation in this encounter. Reviewed and signed by: Rupert Ye Dermatology [facility] documented in this encounter Plan of Treatment Upcoming Encounters Date Type Department Care Team (Late st Contact Info) Description 12/11/2024 2:00 PM EST Office Visit Dermatology at [address] [address] Bianka Jaffe MD [facility] DR JAM[place] [address] Scheduled Referrals Name Type Priority Associated Diagnoses Orde r Schedule Referral to Dermatology Outpatient Referral Routine Basal cell carcinoma (BCC), unspecified site Ordered: 08/16/2023 documented as of this encounter Visit Diagnoses Diagnosis Basal cell carcinoma (BCC) of left jain region documented in this encounter Care Teams Insurance Processing Clerk Relationship Specialty Start Date End Date Ann Perdue MD [facility] [address] PCP - General General Internal Medicine 06/25/22 documented as of this encounter
--- OUTSIDE RECORDS SUMMARY | 2024-05-11 01:37 | XMS_ITS | Encounter Summary ---
Author Organization [facility] Address [facility] [place] [address] Care Team Providers Care Medical Laboratory Technicians Name Role Phone Ann Perdue MD Primary Care Provider [phone] Encounter Details Date Type Department Care Team (Late st Contact Info) Description 06/25/2022 8:40 AM EDT Office Visit Dermatology at [facility] [address] [place] [address] Elizabeth Baca MD [facility] [address] [place] [address] Actinic keratoses; Multiple nevi; Lentigines; Seborrheic keratoses, inflamed; Ontiveros angioma; Neoplasm of unspecified behavior of bone, soft tissue, and skin; Sebaceous hyperplasia Social History Tobacco Use Types Packs/Day Years Used Date Smoking Tobacco: Never Assessed Sex and Gender Information Value Date Recorded Sex Assigned at Not on file Gender Identity Not on file Sexual Orientation Not on file documented as of this encounter Progress Notes * Elizabeth Baca - 06/25/2022 8:40 AM EDT Images from the original note were not included. DEPARTMENT OF DERMATOLOGY Medical Dermatology Clinic Provider: Elizabeth Baca MD Patient's preferred name Renu Preferred contact method for results [x]Phone []myD-H []Letter Detailed phone message OK? Yes Are there any other people with whom we may discuss your care? Past Medical History Date, location, treatment Melanoma No Dysplastic nevi No SCC No BCC No AKs No UV Exposure & Protection + history of tanning bed use + history of blistering sunburn Other relevant past medical history No Family History Details Melanoma No NMSC Yes; Brother Other relevant family history No Social History Occupation: Hobbies: Other: PRE-PROCEDURE SCREENING Details Allergy to lidocaine, epinephrine, Dermabond, chlorhexidine, or adhesives No Bleeding disorder or blood thinners No Pacemaker, defibrillator, deep brain stimulator, cochlear implant No History of Present Illness: Renu Mackey is a 71 y.o. Patient is new and self- referred to the clinic for a full skin exam. Patient denies any specific skin concerns today; no lesions that are new, changing or symptomatic. Medications: Reviewed in eD-H Allergies: Reviewed in eD-H Skin Examination: Full skin examination: Patient asked to undress to their comfort level. Verbalized that the provider???s preference is that the patient remove all clothing and that the provider will not examine areas patient elects to keep covered. Patient elects to keep underwear on and have the following examined: scalp, hair, face, ears, neck, chest, axillae, abdomen, back, and upper and lower extremities. Genitalia and buttocks were not examined. Assessment/Plan A. Lentigo vs Lentigo Maligna vs AK - 1cm dark brown macule on the left oriental orthodox (Figure 1). - Recommended a skin biopsy to confirm/clarify the nature of the skin lesion. After discussion of potential risks (scarring, bleeding, infection) and recurrence, patient agreed to proceed. - Patient denies known allergies to lidocaine and epinephrine. Procedure: Skin shave biopsy Location: left oriental orthodox Time of procedure: 9:09 AM Discussed indications for procedure and expectations [...] - Follow-up based on pathology results. B. Lentigo vs Lentigo Maligna vs AK - 6mm light brown macule on the right lateral lower eye (Figure2). - Recommended a skin biopsy to confirm/clarify the nature of the skin lesion. After discussion of potential risks (scarring, bleeding, infection) and recurrence, patient agreed to proceed. - Patient denies known allergies to lidocaine and epinephrine. Procedure: Skin shave biopsy Location: right lateral lower eyelid Time of procedure: 9:10 AM Discussed indications for procedure and expectations [...] - Ill-defined gritty papules on the right dorsal hand x1, nose x2, and on the left cheek x1. - Explained premalignant potential of these lesions. - Discussed treatment with cryotherapy. Patient elects to proceed with cryotherapy today. - Instructed patient to return to clinic for re-evaluation if lesion(s) does not resolve as expected with this treatment. Procedure: Destruction of lesion(s) with cryotherapy (LN2). Location(s): As noted above. Number: 4 Discussed procedure and expectations, including risks and [...] No treatment necessary at this time. #. Sebaceous hyperplasia - yellow papules with crown of vessels and central dell on dermoscopy -advised lesions are benign increase in size of glands and that if bothersome can be treated cosmetically Figure 1 Figure 2 Photo(s) taken and charted with patient's verbal consent. Other: ??? Sun protection discussed (protective clothing and SPF30+ broad-spectrum sunscreen) RTC: Pending Pathology 1 year for a full skin exam []Note routed to paralegal secretary [x]Recall placed in scheduling system []Appointment scheduled at checkout Scribe attestation: CHARLES Pathak has performed the documentation for this encounter in the presence of and acting as a scribe for Elizabeth Baca MD. I performed the above scribed service and agree with the accuracy of the documentation in this encounter. Reviewed and signed by: Elizabeth Baca MD Dermatology [facility] Patient seen and evaluated with staff rock climbing team member: Joya Vera MD Dermatology [facility] * Elizabeth Baca - 06/25/2022 8:40 AM EDT Called patient to discuss biopsy results which showed: DIAGNOSIS A - L eft oriental orthodox, skin shave biopsy: - ??Melanoma in situ, [...] need LN2 to site B- please schedule * Joya Vera MD - 06/25/2022 8:40 AM EDT I directly supervised the Dermatology resident during this office visit. The resident presented thehistory and physical exam to me. I then saw and examined this patient with the resident. We reviewed the history and pertinent details and I confirmed the physical findings. I agree with the details of the history and physical exam as documented in the resident's note. JOYA VERA MD Staff Physician documented in this encounter Plan of Treatment Upcoming Encounters Date Type Department Care Team (Late st Contact Info) Description 12/11/2024 2:00 PM EST Office Visit Dermatology at [facility] [address] [place] [address] Bianka Jaffe MD [facility] [address] [place] [address] documented as of this encounter Procedures Procedure Name Priority Date/Time Associated Diagnosis Comments SPECIMEN TO PATHOLOGY Routine 06/25/2022 9:15 AM EDT Neoplasm of unspecified behavior of bone, soft tissue, and skin SPECIMEN TO PATHOLOGY Routine 06/25/2022 9:15 AM EDT Neoplasm of unspecified behavior of bone, soft tissue, and skin SURGICAL PATHOLOGY REPORT Routine 06/25/2022 9:09 AM EDT documented in this encounter Results * Specimen to Pathology (06/25/2022 9:15 AM EDT) AP Specimen 06/25/2022 9:15 AM EDT 06/25/2022 9:15 AM EDT [facility] LABORATORY - 06/25/2022 9:15 AM EDT Specimen requisition ordered. ??Separate Pathology report to follow Joya Vera MD PATHOLOGY/CYTOLOGY ORDERABLES Performing Organization Address [facility]/ZIP Co de Phone Number [facility] [place] [address] * Specimen to Pathology (06/25/2022 9:15 AM EDT) AP Specimen 06/25/2022 9:15 AM EDT 06/25/2022 9:15 AM EDT Narrative [facility] - 06/25/2022 9:15 AM EDT Specimen requisition ordered. ??Separate Pathology report to follow Joya Vera MD PATHOLOGY/CYTOLOGY ORDERABLES Performing Organization Address [facility] [place] [address] * Surgical Pathology Report (06/25/2022 9:09 AM EDT) Pathologist [facility] Surgical Pathology Report [id number] ? Location: [facility] The signing pathologist has (i) examined the relevant preparation(s) for the specimen(s) and (ii) rendered or confirmed the diagnosis(es). . ?Surgical Pathology DIAGNOSIS A - L eft oriental orthodox, skin shave biopsy: - ??Melanoma in situ, present at the peripheral specimen edge and deep edge along hair follicles, arising in association with nevus (see Discussion) B - R ight lateral lower eyelid, skin shave biopsy: - Pigmented ??actinic keratosis/lentigo Electronically signed by: ?Brayden ORTIZ, PhD, Raphael Verified: ??07/01/2022 13:46 ??Dermatopathologist Performed at: ??[facility], [place], [place] DISCUSSION A (left oriental orthodox) - PRAME immunostain highlights the atypical ?melanoma in situ component and is negative in the bland nevus component in the superficial dermis, supporting the above diagnosis. ADDITIONAL STUDIES Immunohistochemistry Studies: Formalin-fixed, paraffin-embedded tissue sections are studied using the polymer technique with appropriate positive and negative controls. ?These IHC studies provide the pathologist with adjunctive diagnostic information. Antibody specificity has been verified by testing antibodies on a series of in-house tissues with known immunohistochemical performance characteristics. The clinical interpretation of any antibody positive staining or its absence is evaluated within the context of clinical presentation, morphology, histopathological criteria and other diagnostic tests. Block ? Antibody ? Result (Positive/Negative) A2 ? PRAME red ? Highlights ?? melanoma in situ SPECIMEN(S) SUBMITTED A - left oriental orthodox, skin shave biopsy (1) B - right lateral lower eyelid, skin shave biopsy (1) CLINICAL INFORMATION A. Lentigo versus lentigo maligna versus AK-1 cm dark brown macule on the left oriental orthodox. B. Lentigo versus lentigo maligna versus AK-6 mm light brown macule on the right lateral lower eye. SPECIMEN PROCESSING A - Labeled/Fixative: Left Anabaptist, formalin. Quantity/Size: ??Single, 1.4 x 0.6 x 0.1 cm. Tissue Description: Ortez-white skin shave with a 1.0 x 0.5 cm brown macule. Sections/Processing: Inked, serially sectioned and entirely submitted in 3 cassettes as follows: ?A1: ??Tips ?A2-A3: ??Body . SPECIMEN PROCESSING B - Labeled/Fixative: Right lateral lower eye, formalin. Quantity/Size: ??Single, 0.9 x 0.6 x 0.1 cm. Tissue Description: Ortez-white skin shave with a 0.6 x 0.5 cm cordova macule. Sections/Processing: Inked, serially sectioned and entirely submitted in 2 cassettes as follows: ?B1: ??Tips ?B2: ??Body ??jnr [facility] 06/25/2022 9:09 AM EDT Elizabeth Baca MD PATHOLOGY/CYTOLOGY ORDERABLES [facility] [place] [address] documented in this encounter Visit Diagnoses Diagnosis Actinic keratoses Actinic keratosis Multiple nevi Benign neoplasm of skin, site unspecified Lentigines Other dyschromia Seborrheic keratoses, inflamed Ontiveros angioma Nevus, non-neoplastic Neoplasm of unspecified behavior of bone, soft tissue, and skin Sebaceous hyperplasia Other specified disease of sebaceous glands documented in this encounter Care Teams Medical Laboratory Technicians Relationship Specialty Start Date End [place] [address] PCP - General General Internal Medicine 06/25/22 documented as of this encounter
--- OUTSIDE RECORDS SUMMARY | 2024-05-11 01:37 | XMS_ITS | Encounter Summary ---
Author Organization [facility] Address [facility] David vanegas [place] [id number] Care Team Providers Care Eclectic Doctor Name Role Phone Ann Perdue MD Primary Care Provider [phone] Reason for Referral * Consultation (Urgent) - Closed Specialty Diagnoses / Procedures Referred By Alma velasco Referred To Contact Dermatology Diagnoses Melanoma in situ, unspecified site Elizabeth Baca MD [facility] [address] [place] [address] Rupert Ye MD [facility] [address] [place] [address] Referral ID Status Reason Start Date Expiration Date V isits Requested Visits Authorized [id number] Closed Consult, Test & Treat 07/02/2022 07/02/2023 1 1 Encounter Details Date Type Department Care Team (Late st Contact Info) Description 07/02/2022 Orders Only Dermatology at [facility] [address] [place] [address] Elizabeth Baca MD [facility] DR JAMEE BAZZI-DERMATOLOGY [place] [id number] Melanoma in situ, unspecified site Social History Tobacco Use Types Packs/Day Years [...] 2:00 PM EST Office Visit Dermatology at [facility] [address] [place] [address] Bianka Jaffe MD [facility] [address] [address] Scheduled Referrals Name Type Priority Associated Diagnoses Orde r Schedule Referral to Dermatology Outpatient Referral STAT Melanoma in situ, unspecified site Ordered: 07/02/2022 documented as of this encounter Visit Diagnoses Diagnosis Melanoma in situ, unspecified site documented in this encounter Care Teams Eclectic Doctor Relationship Specialty Start Date [place] [address] PCP - General General Internal Medicine 06/25/22 documented as of this encounter
--- OUTSIDE RECORDS SUMMARY | 2024-05-11 01:37 | XMS_ITS | Clinical Summary ---
Author Organization [facility] Address [facility] [place] [address] Care Team Providers Care Deli Department Manager Name Role Phone Ann Perdue MD Primary Care Provider [phone] Allergies No known active allergies Medications Medication Sig Dispensed Refills Start Date End Date Status ibuprofen (Advil) 200 mg Tablet Take 200 mg by mouth every 6 hours as needed for Pain. Active acetaminophen (Tylenol) 650 mg ER tablet Take 650 mg by mouth every 8 hours as needed for Pain. Do not exceed 6 tabs in 24 hours Active Social History Tobacco Use Types Packs/Day Years Used Date Smoking Tobacco: Never Assessed Sex and Gender Information Value Date Recorded Sex Assigned at Not on file Gender Identity Not on file Sexual Orientation Not on file Last Filed Vital Signs Vital Sign Reading Time Taken Comments Blood Pressure 150/95 09/13/2023 11:46 AM EST Pulse 89 09/13/2023 11:46 AM EST Temperature - - Respiratory Rate - - Oxygen Saturation - - Inhaled Oxygen Concentration - - Weight - - Height - - Body Mass Index - - Plan of Treatment Upcoming Encounters Date Type Department Care Team (Late st Contact Info) Description 12/11/2024 2:00 PM EST Office Visit Dermatology at [facility] [address] [place] [address] Bianka Jaffe MD [facility] [place] [address] Health Maintenance Due Date Last Done Comments CT Colonography 1950 Colonoscopy 1950 Colorectal Cancer Screening 1950 FIT DNA 1951 FIT 1951 Sigmoidoscopy (10 year) with FIT yearly 1950 Sigmoidoscopy 1950 Hepatitis C Screening 1969 Tdap adult 1970 Tetanus vaccine 1970 Breast Cancer Share Decision Needed 1991 Breast Cancer screening 1991 Zoster vaccine (1 of 2) 2001 Advance Directive 2006 Bone Density Scan 2016 Pneumoccocal Vaccine: 65+ (1 of 1 - PCV) 2016 Covid-19 Vaccine (1 - season) 2023 Influenza (Flu) vaccine (1 o f 1 - Influenza standard series) 06/25/2024 Care Teams Deli Department Manager Relationship Specialty Start Date End Date [place] [address] [place] [address] PCP - General General Internal Medicine 06/25/22
--- OUTSIDE RECORDS SUMMARY | 2024-05-11 01:37 | XMS_ITS | Encounter Summary ---
Author Organization [facility] Address [facility] [place] [address] Care Team Providers Care Searchlight Operator Name Role Phone Ann Perdue MD Primary Care Provider [phone] Encounter Details Date Type Department Care Team (Latest Contact Info) Description 08/31/2022 7:45 AM EST Clinical Support Dermatology at [facility] [address] [place] [address] Rupert Ye MD [facility] [address] [place] [address] Melanoma in situ of religion region Social History Tobacco Use Types Packs/Day Years Used Date Smoking Tobacco: Never Assessed Sex and Gender Information Value Date Recorded Sex Assigned at Not on file Gender Identity Not on file Sexual Orientation Not on file documented as of this encounter Progress Notes * Mary Ellen Lopez LPN - 08/31/2022 7:45 AM EST Mohs consultation and preoperative note (H&P) Patient Name: Renu Mackey Age: 71 y.o. Date of : 1950 Today's Date: 08/31/2022 REFERRING PROVIDER: CC: Mohs micrographic surgery for treatment of a cutaneous tumor HPI: Renu Mackey is a 71 y.o. female presenting for biopsy-proven Melanoma in situ, present at the peripheral specimen edge and deep edge along hair ??follicles, arising in association with nevus location on the Left Hector The dermatologic preoperative information sheet was reviewed [...] PM EST Office Visit Dermatology at [address] [address] Bianka Jaffe MD [facility] [address] [place] [address] documented as of this encounter Visit Diagnoses Diagnosis Melanoma in situ of religion region Malignant melanoma of skin of other and unspecified parts of face documented in this encounter Care Teams Searchlight Operator Relationship Specialty Start Date End [place] [address] PCP - General General Internal Medicine 06/25/22 documented as of this encounter
--- OUTSIDE RECORDS SUMMARY | 2024-05-11 01:37 | XMS_ITS | Encounter Summary ---
Author Organization [facility] Address [facility] [place] [address] Care Team Providers Care Kiln Puller Name Role Phone Ann Perdue MD Primary Care Provider [phone] Encounter Details Date Type Department Care Team (Late st Contact Info) Description 02/13/2023 9:00 AM EDT Office Visit Dermatology at [facility] [address] [place] [address] Suzi Huffman MD [facility] DR [place] [address] History of melanoma in situ; History of dysplastic nevus; Congenital nevus of scalp; Rosacea; Intertrigo; Ontiveros angioma; Multiple benign melanocytic nevi of upper and lower extremities and trunk; Seborrheic keratoses; Lentigines Social History Tobacco Use Types Packs/Day Years Used Date Smoking Tobacco: Never Assessed Sex and Gender Information Value Date Recorded Sex Assigned at Not on file Gender Identity Not on file Sexual Orientation Not on file documented as of this encounter Progress Notes * Suzi Huffman MD - 02/13/2023 9:00 AM EDT Images from the original note were not included. DEPARTMENT OF DERMATOLOGY Medical D[facility]atology [facility] Provider: Suzi Huffman MD Patient's preferred name Renu Preferred contact method for results [x]?Phone []?myD-H []?Letter Detailed phone message OK? Yes Are there any other people with whom we may discuss your care? No ?? Past Medical History Date, location, treatment Melanoma 06/25/2022: Left orthodox, MIS, s/p Mohs 08/31/2022 Dysplastic nevi 09/30/2022: Mid central back, Compound dysplastic nevus with mild atypia, not identified at specimen edges SCC No BCC No AKs No UV Exposure & Protection + history of tanning bed use + history of blistering sunburn Other relevant past medical history No Family History Details Melanoma No NMSC BCC (Brother) Other relevant family history No Social History Occupation: Hobbies: Other: ?? Pre-Procedure Screening Details Allergy to lidocaine, epinephrine, Dermabond, chlorhexidine, or adhesives No Bleeding disorder or blood thinners No Implanted devices (Pacemaker, defibrillator, deep brain stimulator, cochlear implant) No History of Present Illness: Renu Mackey is a 72 y.o. Patient returns to clinic today for a full skin exam with the following concerns: - She notes a raised area underneath her bra strap on the right shoulder. - Renu states that she has had lumps on her scalp since childhood. She does not find them concerning. - She states that during the warmer months, she often develops a rash under her breasts related moisture/excess perspiration. - She denies any changing, rapidly growing, tender, or spontaneously bleeding lesions. Last visit at Dermatology: 09/30/2022 Last visit with this provider: Visit date not found Medications: Reviewed in eD-H Allergies: Reviewed in [...] Genitalia and buttocks were not examined. Assessment/Plan 1. History of Melanoma in Situ - Well healed scar on the left orthodox. - NER; will continue to monitor. - Reviewed importance of applying SPF 30+ sunscreen daily. Recommended CeraVe. 2. History of Dysplastic Nevus - Well healed scar on the mid central back. - NER; will continue to clinically monitor. 3. Congenital Nevus - 1.5cm medium-brown, evenly pigmented, hair-bearing plaque on the scalp. - Discussed benign nature of lesion and provided reassurance. No treatment necessary at this time. 4. Rosacea - Diffuse erythema and dilated telangiectasias on the central face. - Not bothersome to patient; no treatment today. 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 - Benign. No treatment needed. 6. Lentigines - Scattered, light-brown, evenly pigmented, well-demarcated macules on sun-exposed areas of the trunk and extremities. - No worrisome pigmented lesions. Discussed benign nature of lesions and provided reassurance. Willcontinue to monitor. 7. Benign Nevi - Scattered light to medium brown macules on the trunk and extremities with reassuring pigment pattern on dermoscopy. - Reassured of benign appearance on exam today. - Advised patient to watch for any new or changing lesions. - Reviewed warning signs of skin cancer. 8. Seborrheic Keratoses - Stuck on, waxy papules on the trunk and extremities. - Benign. No treatment needed. 9. Intertrigo - Per patient, history of rash in inframammary folds from heat/moisture. - Explained that condition is a result of repeated rubbing of skin folds in the setting of moisture. - Recommended application of Dove clinical strength deodorant to affected areas nightly. - Recommended setting a blowdryer to cool and using it to thoroughly dry affected skin after bathing. Other: ??? Sun protection discussed (protective clothing and SPF30+ broad-spectrum sunscreen) ??? OTC skin products discussed RTC: 1 year for FSE []Note routed to merchant mill utility worker [x]Recall placed in scheduling system []Appointment scheduled at checkout Scribe attestation: CHARLES Lynn has performed the documentation for this encounter in the presence of and acting as a scribe for Suzi Huffman MD. I performed the above scribed service and agree with the accuracy of the documentation in this encounter. Reviewed and signed by: Suzi Huffman MD Dermatology [facility] Patient seen and evaluated with staff specialty sales representative: Kena Villalta MD Dermatology [facility] * Kena Villalta MD - 02/13/2023 9:00 AM EDT I directly supervised Dr. Huffman during this office visit. Dr. Huffman presented the history and physical exam to me. I, then, saw and examined this patient with Dr. Huffman. We reviewed the history and pertinent details and I confirmed the physical findings. I agree with the details of the history and physical exam as documented in Dr. Huffman's note. KENA VILLALTA MD Staff Physician documented in this encounter Plan of Treatment Upcoming Encounters Date Type Department Care Team (Late st Contact Info) Description 12/11/2024 2:00 PM EST Office Visit Dermatology at [address] [address] Bianka Jaffe [facility] [place] [address] documented as of this encounter Visit Diagnoses Diagnosis History of melanoma in situ Personal history of malignant melanoma of skin History of dysplastic nevus Personal history of diseases of skin and subcutaneous tissue Congenital nevus of scalp Benign neoplasm of scalp and skin of neck Rosacea Intertrigo Other specified erythematous condition Ontiveros angioma Nevus, non-neoplastic Multiple benign melanocytic nevi of upper and lower extremities and trunk Seborrheic keratoses Lentigines Other dyschromia documented in this encounter Care Teams Kiln Puller Relationship Specialty Start Date End [place] [address] PCP - General General Internal Medicine 06/25/22 documented as of this encounter
--- OUTSIDE RECORDS SUMMARY | 2024-05-11 01:37 | XMS_ITS | Encounter Summary ---
Author Organization [facility] Address [facility] [place] [address] Care Team Providers Care Book Sewing Machine Operator Name Role Phone Ann Perdue MD Primary Care Provider [phone] Reason for Visit * Consultation (Urgent) - Closed Specialty Diagnoses / Procedures Referred By Contac t Referred To Contact Dermatology Diagnoses Melanoma in situ, unspecified site Elizabeth Baca MD [facility] [place] [address] Rupert Ye MD [facility] [place] [address] Referral ID Status Reason Start Date Expiration Date V isits Requested Visits Authorized [id number] Closed Consult, Test & Treat 07/02/2022 07/02/2023 1 1 Encounter Details Date Type Department Care Team (Latest Contact Info) Description 08/31/2022 8:00 AM EST Procedure visit Dermatology at [facility] [address] [place] [address] Rupert Ye MD [facility] [place] [address] Melanoma in situ of taoist region Social History Tobacco Use Types Packs/Day Years Used Date Smoking Tobacco: Never Assessed Sex and Gender Information Value Date Recorded Sex Assigned at Not on file Gender Identity Not on file Sexual Orientation Not on file documented as of this encounter Last Filed Vital Signs Vital Sign Reading Time Taken Comments Blood Pressure 155/77 08/31/2022 7:48 AM EST Pulse 101 08/31/2022 7:48 AM EST Temperature - - Respiratory Rate - - Oxygen Saturation - - Inhaled Oxygen Concentration - - Weight - - Height - - Body Mass Index - - documented in this encounter Patient Instructions * Patient Instructions* Mary Ellen ColeWARREN - 08/31/2022 8:00 AM EST Your staff surgeon today was Rupert Ye MD,PhD. Your wound(s) was repaired by [id number] stitches called a primary repair. You do not need to come back for suture removal because only absorbable sutures were used today. If the absorbable sutures bother your skin or do not absorb after 2 weeks, you may call us to remove them for you. Instructions are as below. Please keep this as a reference: Wound Care For wounds closed with absorbable-only stitches: Gently remove your initial bandage (after 48 hours from surgery) and begin wound care as below. If your initial bandage only lasts 24 hours (for example, falls off sooner), this is okay. Resume your wound care and bandaging instructions as below. Change your bandage once a day (and whenever it becomes wet or soaks through). DO WOUND CARE FOR ONE WEEK. For bandage changes: Wash hands with soap and water, or use gloves that you can purchase a local pharmacy or drug store. Clean the surgical area with cotton-tipped swabs or gauze dipped in soapy water (recommend liquid soap in clean room temperature water). Do not scrub the area or put direct shower water pressure ontoyour wound. It is okay to allow soapy water to run over your wound in the shower. If you cannot remove crusted areas, you may soak with wet gauze first for 15 to 20 minutes to help soften it. Pat the area dry with clean gauze or cotton swabs. Do not rub. Use a cotton swab to apply a generous layer of petroleum jelly over the incision lines and any open-wound areas. Cover with clean nonstick gauze or other nonstick dressing, such as Telfa. This may be purchased over the counter at a drug store. Secure with paper tape or bandage. Band-aids are okay, but typicallyhave more adhesive that can irritate the skin compared to paper tape. Discontinue wound care after 7 days. If any portion of the incision was left open to heal on its own, continue to apply Vaseline daily until healed. Allow the absorbable stitches to heal. If the top stitches that are absorbable are irritating your skin, you may call us to have them removed. Otherwise, they will be absorbed naturally in approximately 2 weeks. It may absorb as quickly as 4 days. Keep in mind that if you do not want to use a bandage at all due to difficulty, allergies, irritation of skin, cost, time, or inconvenience --- you can certainly avoid bandages altogether. However, it is imperative that you continue with topical petrolatum ointment or Aquaphor (plain, fragrance-free). This may need to be applied several times daily if it gets wiped off, washed off, or dries out. Things to purchase for wound care: -Nonstick gauze -A tube or tub of petrolatum jelly (fragrance-free, no dye, not lotion) -paper tape -cotton swabs -gloves (optional) -Dial or other antibacterial liquid soap After Surgery If you are a tobacco user please attempt to decrease the amount of tobacco products used following surgery for 1-2 weeks. Limit alcohol intake to one drink per day for the next 3 days. Do not participate in athletic activities for 5-7 days, unless you were told a different timeline during your visit. Athletic activity is a relative term, but this is considered to be anything that could potentially raise your heartrate or blood pressure. Elevating your heart rate and blood pressure increases the risk of swelling, bleeding, wound opening, and it could lead to worse scarring. Walki ng at a leisurely pace is fine for most people, but not if you are walking for the purpose of exercise. When in doubt, take it easy or call us. Do not lift anything heavier than 10 pounds for 5-7 days postoperatively. Some cargoman may need to be delayed or delegated such as vacuuming, mowing the lawn, snow shoveling, or caring for young children that need to be carried/lifted. Working any major muscle groups increases your heart rate and can increasing bleeding. Avoid swimming, hot tubs, and direct water pressure for 3 weeks after surgery. You may shower, however, once your initial bandage comes off in 48 hours. Avoid antibiotic ointments such as triple antibiotic creams. Stick with your wound care instructions, please. Whenever possible, it is helpful to take photographs with your camera or cell phone of any problemsor concerns you see with your wound. We often ask for photos when you call with questions. Starting 2 months following surgery, you can begin firm massage to any areas of firm scar along your incision to soften the scar and reduce bumpiness. Do this 3 times per day, 3 minutes each time. Donot start massage before 2 months. Your wound will appear almost completely healed soon after sutures are removed (about 1 week), but incisions can remain bright red for several weeks. Then the scarring and healing process continues under the skin for 6 months until to 2 years. The scar may become less red, less firm, and more subtle during this time; please note that the rate of improvement varies depending on the person. Most redness, discoloration, bumpiness resolves by 6 months, and most patients will look presentable withina few weeks after surgery. Keep your follow-up appointments and make sure to continue to have your skin checked, as often as is recommended by your technology infusion specialist, for new skin cancers. This is once per year for most patients. Your can expect your scar to be red for several weeks with gradual fading of the redness. Your scarwill also be raised and lumpy until the dissolvable sutures under the skin get absorbed by your body which can take 3-4 months. The scar will flatten eventually. If you have a skin condition called rosacea, the redness can last long-term, or you can get an increased appearance of red vessels to the skin. The appearance of vessels slightly improves, but tends to respond well to laser treatments. Occasionally, about 20% of the time on the face, the stitches under the skin can spit out of the incision to the surface. It can start out looking like a pimple or blemish directly on your incision. Sometimes you can feel something poking through the incision. it can look also minic a small area of infection, so please let us know before you go to another provider for antibiotics. This means that the suture may need to be trimmed or removed when you return for your wound check. This typically occurs a few weeks after surgery if it does occur. To optimize your scar, and best cosmetic result, please avoid direct sunlight to your incision for the first 6 months following surgery. UV ray exposure to your incision may cause the redness to lastlonger, or to cause permanent darkening of your scar. You can avoid sun by covering your incision with a bandage when outdoors, wearing broad-rimmed hats, and wearing SPF 30 to 50 sunscreen (broad spectrum). Any time you have skin surgery or any type of surgery, you can experience mild sensation loss (numbness) in the area of surgery. Massage starting at 8 weeks after surgery can help. Swelling and bruising is common, and expected, especially if your surgery site was on the forehead,cheeks, temples, nose, or eyelids. . Sometimes it can be quite profound, where the eyelids swell shut, or getting black eyes. This is especially true if you are on blood thinners such as aspirin. Swelling and bruising will peak at about 48 hours after surgery. Bruising and swelling will graduallyresolve. You can use ice packs or a bag of frozen peas for 15-20 minutes, 20 minutes off, up to 3-4times daily to areas of swelling on the face. Use caution not to put the icy item directly onto your incision, or directly in contact with your skin as this can damage skin. Avoid prolonged use more than 20 minutes. The best way to use ice packs is over the bandage, or using a light cloth/paper towel barrier between the ice pack and your skin. You can ice for as many days as needed until swellinghas resolved. Eyelid and lip swelling is typically the last type of swelling to resolve. Antibiotics: NONE If you were given antibiotic prescription, it is important to start them the evening of your surgery date. However, most patients do not need antibiotics after surgery. For pain: Most patients of different ages do not require pain medications. If you do feel soreness, throbbingor sharp pains, start by taking over the counter extra strength acetaminophen (up to 3000 mg in a 24 hour period). Generally, we like you to avoid NSAIDS (non-steroid anti-inflammatory drugs such as ibuprofen) for the first 48 hours after surgery as this can increase risk of bleeding. However, if acetaminophen is not helping with pain, you can alternate acetaminophen with iburpofen or other NSAID. Ice packs over your bandage without getting your bandage wet can also help with pain and swelling.Frozen peas work well as ice packs. THIS IS AN EXAMPLE OF A PAIN TREATMENT SCHEDULE: 1) You can take 500 mg acetaminophen one tablet by mouth at 6:00pm. This is over the counter. 2) You can take 400 mg of ibuprofen two hours later, at 8:00 pm, or other NSAID such as naproxen, as long as it does not interact with your other medications and your other doctors have not told you to avoid this. This is over the counter. Check to see how many milligrams (mg) each of your ibuprofen tablets are. Most of the time, ibuprofen comes in 200 mg tablets, so 400 mg would mean taking two of these tablets or capsules. 3) You can take 500 mg of acetaminophen at 10:00 pm. Keep track of your total acetaminophen in a 24hour period as your maximum should be 3000 mg total in a 24 hour period of this medication. 4) At midnight, you can take another 400 mg of ibuprofen. 5) you can continue on this schedule over the next 2 days, making sure to keep tabs of your total acetaminophen. If you are still in pain after trying the above, please call us. When to call your surgeon: Fever of 100.4 degrees Fahrenheit or higher Bleeding not controlled with direct firm pressure to your wound. Bleeding is most common in the first 48 hours. Pain that is worsening and not relieved by over the counter medications such as acetaminophen (up to 3000 mg in a 24 hour period) Wound reopening after stitching Pus or bad odor from your wound Worsening redness and warmth around your wound If you think your surgery site is infected, please call us before seeking care or antibiotics from other providers Please call us before seeking care in an emergency room or primary care. If you do call, please leave your full name, phone number, date of , date of surgery, and medical record number if you have it. If after hours, please call the retort operator or [phone] and ask for the technology infusion specialist on-call. If you have any non-urgent questions or concerns, please feel free to call my office or contact me through our patient portal, [employer], at [email or web address] How to contact us during business hours [facility] scheduling or Mohs follow-up appointments: [phone] documented in this encounter Progress Notes * Rupert Ye MD - 08/31/2022 8:00 AM EST Images from the original note were not included. Summary of Procedure(s): Site: Left Congregation Tumor Type: Melanoma in Situ Stages to clear tumor: Two Stages Repair: Rhombic Transposition Images: The patient was asked to call with any issues and is aware that I am available / should questions arise. Please note that I have reviewed the preoperative checklist from today's nursing visit including relevant social history and medications. I have reviewed the preoperative photos if available and the biopsy report. VITAL SIGNS: BP 155/77 (BP Location (NBP): Right arm) Pulse (!) 101 PHYSICAL EXAMINATION: General: patient is awake, alert, oriented and in no acute distress. Skin: Focused examination of surgical site(s) performed which shows a well healed biopsy site with surrounding poorly defined hyperpigmentation. PHYSICIAN REVIEW OF REPORTS, RECORDS, IMAGES: 1) The accompanying pathology report(s) associated with aforementioned biopsy slide(s) were/was also reviewed. Assessment: Renu Mackey is a 71 y.o. female presenting for: 1. 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 Findings from the biopsy report, [...] including but not limited to the following: ?? Risks include bleeding, infection, scar, recurrence, incomplete [...] permanent loss of sensation or motor function. ?? Benefit is precise tumor removal ?? If reconstruction is performed, it is specific to the patient and defect. ?? Discussed that the shape, size, depth of the wound is often not known until the tumor is clearedand thus the reconstruction options are sometimes not known until after tumor clearance. Occasionally, referrals to other providers may be recommended for reconstruction based on patient preference and need. ?? Reviewed the pros and cons of common reconstructions used for this tumor type, size, and location, and that reconstruction may lead to change in appearance. ?? Natural history of scar was discussed, including that the scar will continue to mature for 1-2 years. Recommended avoidance of special ointments or scar creams, and avoidance of direct sun exposure to the scar for optimal recovery. ?? Reviewed that there are some aspects of cosmesis that are dependent on patient's characteristicssuch as age, skin laxity/texture factors, inflammatory skin diseases such as rosacea, prior surgery/radiation, degree of actinic damage, smoking status, strength of the patient's immune system, diligent wound care, medications, and genetics. ?? Having Mohs surgery may lead to physical limitations for optimal healing, such as restricted physical activity and heavy lifting. 4. Signs and symptoms of skin cancer reviewed. Patient to report any new, changing, or symptomatic lesions and follow up with his or her technology infusion specialist or other skin provider. 5. Discussed avoiding direct sun exposure to scars for best cosmetic result. Note initiated by Mary Ellen COLE LPN has performed the documentation for this encounter in the presence of and acting as a scribe for Dr. Ye I performed the above scribed service and agree with the accuracy of the documentation in this encounter. Reviewed and signed by: Rupert Ye MD PhD Mohs Micrographic Surgery and Dermatologic Oncology Department of Dermatology * Rupert Ye MD - 08/31/2022 8:00 AM EST Mohs micrographic Surgery Operative Report Using MART-1 Immunostains Patient name: Renu Mackey : 1950 Date: 08/31/2022 Staff Surgeon: Rupert Ye MD PhD Nursing/Trail Maintenance Worker(s): Elissa Olson [facility], Mary Ellen Siddiqicorewell health green[facility] hospitalPanfilo [facility], Chopper Operator(s): Criss Reyes Pre-operative diagnosis: Melanoma In Situ Post-operative diagnosis: Melanoma in Situ Location/Site: Left Congregation Procedure: Mohs micrographic surgery Indications: Because of the histologic and clinical nature of the lesion, as well as its location, the need to achieve the highest cure rate while providing maximum tissue preservation warranted tumor extirpation via microscopically- controlled excision using the Mohs fresh tissue technique. Alternate therapeutic options were discussed on several occasions prior to surgery. After informed consent was obtained and appropriate instruction was provided, the patient underwent tumor extirpation by the Mohs fresh tissue technique as follows: Stages: Two Stages Preoperative size of tumor: 1.8 x 1.8 cm Stage I The nature and purpose [...] The site was confirmed with the patient/authorized retail sales representative/referring physician and/or a photograph form time of biopsy. A pre-operative time-out (procedural pause) was conducted with no unresolved discrepancies noted. Local anesthesia was obtained with 1.0% lidocaine with 1:100,000 epinephrine. The surgical site was prepped and draped in the usual sterile manner. With all visible gross tumor completely excised, the borders of the tumor and 3- 5 mm margins were excised as a complete layer. Hemostasis was achieved by electrocoagulation. The excised tissue was oriented and divided into 2 sections, chromacoded, and submitted for frozen sections. The patient tolerated the procedure well and without complications. 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 Based on this discussion we made the joint decision to proceed and remove a small piece of additional tissue as Stage 2 to ensure no problems in the future. Note: MART-1 (Melanoma Antigen Recognized by T-cells) antibody immunostaining was used during Mohs surgery as per standard protocol, in addition to routine processing of all sections with hematoxylinand eosin (3 specimens total). A negative control was also processed. The patient was informed of the procedure and it's risk/benefits during the consent for the procedure. ,The residual melanocytic lesion was biopsied prior to Mohs and processed by frozen sectioning with both H&E and MART-1 immunostain for further characterization of the original lesion. One or more of the reagents used in immunohistochemical testing in this case may not have been cleared or approved by the U.S. Food and Drug Administration (FDA). The FDA has determined that such clearance or approval is not necessary. These tests are used for clinical purposes. They should not be regarded as investigational or for research.This laboratory is certified under the Clinical Laboratory Improvement Amendments of 1988 (CLIA-88) as qualified to perform high complexity clinical laboratory testing. Stage II The surgical site was re-anesthetized with 1.0% lidocaine with 1:100,000 epinephrine, re-prepped and redraped in a sterile manner. The residual tumor was re-excised as a complete layer 3-5mm in thickness using the Mohs map to delineate area of residual tumor. Hemostasis was achieved with electrocoag ulation. The tissue was oriented and divided into 1 sections, chromacoded, and submitted for frozensections. The patient tolerated the procedure well and without complications. On my personal microscopic evaluation of the frozen sections, no residual tumor was identified on the deep or outer border of the sections. Depth of excision subcutaneous tissue. Note stage 2 was only analyzed with hematoxylin and eosin sections. The final size of the defect after complete tumor removal was 2.7 x 2.5 cm, extending to level of subcutaneous tissue. Repair Report (Flap) Patient name: Renu Mackey Staff Surgeon: Rupert Ye MD PhD Machine Milker(s): same as above physician assistant primary care: Date: 08/31/2022 Clinical Diagnosis: skin and soft tissue defect status post Mohs micrographic surgery Location/Site: Left Congregation Indication: repair of wound with pentecostal of anatomy/function Defect size to be repaired: 2.7x 2.5cm Procedure: Rhombic flap repair Final flap size: 4.0 x 3.5 cm 2 Procedure Details: Due to the size and location of the defect resulting from the complete removal of the tumor, the postoperative risk of hemorrhage, infection, and the possibility of serious deformity from scarring, and in order to restore proper function and prevent loss of function, the defect was closed with a flap. The nature and purpose of the procedure, associated risks, possible consequences, complications andalternative methods of treatment were explained to the patient in detail. An informed consent was obtained. Local anesthesia was obtained with a solution of 0.5 % lidocaine with 1:200,000 epinephrine. The surgical site was prepped and draped in the usual sterile manner. Any beveled edges of the defect were repaired with a scalpel blade. The flap was created by making incisions along the preauricular cheek. The flap and the wound edgeswere undermined, and hemostasis was obtained with electrocoagulation. The flap was tranposed onto the defect. The skin edges were closed using 4-0 & 5-0 Monocryl dermal/subcutaneous sutures and 6-0 Fast Absorbing Gut skin sutures. Final flap size: 4.0 x 3.5 cm2. Estimated blood loss: Minimal. Complications: None. Wound care: Routine. Follow up as needed. The patient was discharged in good condition. Total anesthesia used today of 1.0% lidocaine with 1:100,000 epinephrine: 12 cc Preoperative Medications: None Post-operative medications: None Note initiated by MARY ELLEN COLE LPN. has performed the documentation for this encounter in the presence of and acting as a scribe for Dr. eY I performed the above scribed service and agree with the accuracy of the documentation in this encounter. Reviewed and signed by: Rupert Ye MD PhD Mohs Micrographic Surgery and Dermatologic Oncology Section of Dermatology, Department of Surgery documented in this encounter Plan of Treatment Upcoming Encounters Date Type Department Care Team (Late st Contact Info) Description 12/11/2024 2:00 PM EST Office Visit Dermatology at [facility] [address] [place] [address] Bianka Jaffe MD [facility] [place] [address] documented as of this encounter Visit Diagnoses Diagnosis Melanoma in situ of taoist region Malignant melanoma of skin of other and unspecified parts of face documented in this encounter Care Teams Book Sewing Machine Operator Relationship Specialty Start Date End [place] [address] PCP - General General Internal Medicine 06/25/22 documented as of this encounter
--- OUTSIDE RECORDS SUMMARY | 2024-05-11 01:37 | XMS_ITS | Encounter Summary ---
Author Organization [facility] Address [facility] [place] [address] Care Team Providers Care Pellet Machine Operator Name Role Phone Ann Perdue MD Primary Care Provider [phone] Encounter Details Date Type Department Care Team (Latest Contact Info) Description 09/13/2023 11:45 AM EST Clinical Support Dermatology at [facility] [address] [place] [address] Rupert Ye MD [facility] DR JAMEE [place] [address] Basal cell carcinoma (BCC) of left orthodoxy region Social History Tobacco Use Types Packs/Day Years Used Date Smoking Tobacco: Never Assessed Sex and Gender Information Value Date Recorded Sex Assigned at Not on file Gender Identity Not on file Sexual Orientation Not on file documented as of this encounter Progress Notes * Rupert Ye MD - 09/13/2023 11:45 AM EST Mohs consultation and preoperative note (H&P) Patient Name: Renu Mackey Age: 72 y.o. Date of : 1950 Today's Date: 09/13/2023 REFERRING PROVIDER: Elizabeth Baca CC: Mohs micrographic surgery for treatment of a cutaneous tumor HPI: Renu Mackey is a 72 y.o. female presenting for biopsy-proven basal cell carcinoma, superficial and nodular location on the left cheek. The dermatologic preoperative information sheet was reviewed with pertinent positive and negative as below. DERMATOLOGIC PRE-OPERATIVE EVALUATION AND REVIEW OF SYSTEMS History of Mohs surgery? yes If yes, have you ever had Mohs surgery with Dr. Ye? yes 2021 left orthodoxy Pacemaker/Defibrillator? no Joint replacement or other implantable devices (e.g. Cochlear implant)? If yes then when? no Do you take a blood thinner? No History of organ transplant? no History of artificial valve or stroke? no History of liver disease or bleeding disorder? no Do you have any medical problems that may affect your upcoming surgery? no Do you have any concerns regarding your upcoming surgery? no We ask patients to discontinue Fish oil/Multivitamin/Vit E/?? supplements and natural medicines not prescribed by a physician 1 week prior to surgery. SOCIAL HISTORY: Makes Own Decisions Yes Hearing aid or other devices: No Relevant travel history or future plans: no Tobacco use (amount per day, type of tobacco): no Do you have any physical limitations that may affect your surgery?: no ALLERGIES: Allergies reviewed MEDICATIONS: Medications reviewed Rupert Ye MD PhD Mohs Micrographic Surgery and Dermatologic Oncology Department of Dermatology documented in this encounter Plan of Treatment Upcoming Encounters Date Type Department Care Team (Late st Contact Info) Description 12/11/2024 2:00 PM EST Office Visit Dermatology at [address] [address] Bianka Jaffe MD [facility] DR JAMEE [place] [address] documented as of this encounter Visit Diagnoses Diagnosis Basal cell carcinoma (BCC) of left orthodoxy region documented in this encounter Care Teams Pellet Machine Operator Relationship Specialty Start Date End [place] [address] PCP - General General Internal Medicine 06/25/22 documented as of this encounter
--- OUTSIDE RECORDS SUMMARY | 2024-05-11 01:37 | XMS_ITS | Encounter Summary ---
Author Organization [facility] Address [facility] [place] [address] Care Team Providers Care Forest Resource Specialist Name Role Phone Ann Perdue MD Primary Care Provider [phone] Reason for Referral * Consultation (Routine) - Closed Specialty Diagnoses / Procedures Referred By Contac t Referred To Contact Dermatology Diagnoses Basal cell carcinoma (BCC), unspecified site Elizabeth [place] [address] Rupert Ye MD [facility] [place] [address] Referral ID Status Reason Start Date Expiration Date V isits Requested Visits Authorized [id number] Closed Consult, Test & Treat 08/16/2023 08/15/2024 1 1 Encounter Details Date Type Department Care Team (Late st Contact Info) Description 08/16/2023 Transcribe Orders Dermatology at [facility] [place] [address] Elizabeth Baca MD [address] [place] [address] Basal cell carcinoma (BCC), unspecified site Social History Tobacco Use Types [...] 2:00 PM EST Office Visit Dermatology at [facility] [address] [place] [address] Bianka Jaffe MD [facility] [address] [place] [address] Scheduled Referrals Name Type Priority Associated Diagnoses Orde r Schedule Referral to Dermatology Outpatient Referral Routine Basal cell carcinoma (BCC), unspecified site Ordered: 08/16/2023 documented as of this encounter Visit Diagnoses Diagnosis Basal cell carcinoma (BCC), unspecified site documented in this encounter Care Teams Forest Resource Specialist Relationship Specialty Start Date End [place] [address] PCP - General General Internal Medicine 06/25/22 documented as of this encounter
--- OUTSIDE RECORDS SUMMARY | 2024-05-11 01:37 | XMS_ITS | Encounter Summary ---
Author Organization [facility] Address [facility] [place] [address] Care Team Providers Care Laboratory Equipment Installer Name Role Phone Ann Perdue MD Primary Care Provider [phone] Encounter Details Date Type Department Care Team (Latest Contact Info) Description 08/04/2023 Travel Social History Tobacco Use Types Packs/Day [...] 2:00 PM EST Office Visit Dermatology at [facility] [address] [place] [address] Bianka Jaffe MD [facility] DR JAMEE [place] [address] documented as of this encounter Visit Diagnoses Not on filedocumented in this encounter Care Teams Laboratory Equipment Installer Relationship Specialty Start Date End Date Ann Perdue [place] [address] [place] [address] PCP - General General Internal Medicine 06/25/22 documented as of this encounter
--- OUTSIDE RECORDS SUMMARY | 2024-05-11 01:37 | XMS_ITS | Encounter Summary ---
Author Organization [facility] Address [facility] [place] [address] Care Team Providers Care Salesperson Pets [employer] Pet Supplies Name Role Phone Ann Perdue MD Primary Care Provider [phone] Encounter Details Date Type Department Care Team (Late st Contact Info) Description 08/18/2022 Telephone Dermatology at [facility] [address] [place] [address] Rupert Ye MD [facility] DR [place] [address] Social History Tobacco Use Types Packs/Day Years Used Date Smoking Tobacco: Never Assessed Sex and Gender Information Value Date Recorded Sex Assigned at Not on file Gender Identity Not on file Sexual Orientation Not on file documented as of this encounter Miscellaneous Notes * Telephone Encounter - Mary Ellen Lopez LPN - 08/18/2022 3:38 PM EDT Called her home number and left a detailed message asking her to call the office to answer some pre-op questions prior to her appointment on the August. documented in this encounter Plan of Treatment Upcoming Encounters Date Type Department Care Team (Late st Contact Info) Description 12/11/2024 2:00 PM EST Office Visit Dermatology at [facility] [address] [place] [address] Bianka Jaffe MD [facility] [address] [place] [address] documented as of this encounter Visit Diagnoses Not on filedocumented in this encounter Care Teams Salesperson [employer]ets [employer] Pet Supp[employer] Relationship Specialty Start Date [place] [address] PCP - General General Internal Medicine 06/25/22 documented as of this encounter
--- NOTE | 2024-05-11 08:30 | DI.MAMMO_ITS ---
Exam(s) MAMMO SCREENING EXAM: MAMMO SCREENING CLINICAL HISTORY: screening. TECHNIQUE: Bilateral full field digital CC and MLO mammographic images were obtained with 3D tomosyn thesis and utilizing computer aided detection (CAD). COMPARISON: Prior mammograms were reviewed. FINDINGS: There has been no significant change in the appearance and distribution of the fibroglandular tissue. There are no new spiculated masses nor malignant appearing microcalcification groups. There is no significant architectural distortion nor skin thickening-retraction. IMPRESSION: No radiographic evidence of malignancy. BI-RADS Category 1 - Negative Breast Density - Category B - Scattered areas of fibroglandular density Breast density Category C or D implies that the patient has dense breast tissue. Dense breast tissue can make it harder to find cancer on a mammogram. Dense breast tissue is also associated with an incr eased risk of breast cancer. This information about the result of the mammogram report was provided to the patient to raise their awareness. Use this report when you speak with the patient about their risks for breast cancer, which includes their family history. At that time, you may recommend additional screening tests (Ultrasoun d or MRI) as these tests may add significant information. A negative radiographic report should not delay biopsy if a dominant or clinically suspicious mass is present. Up to ten percent of cancers are not identified on mammography. A negative report may reinforce clinical impression. Adenosis and dense breasts may obscure an underlying neoplasm. False positive reports average 6 to 10%. Patient will receive a letter notifying them of these results.
== END ==
PROVIDERS: PCP Legal Medicine; Visit Provider Obstetrics & Gynecology
DX: Z12.31 Encounter for screening mammogram for malignant neoplasm of breast (principal)
CPT/HCPCS: 77063; 77067

== ENCOUNTER → 2024-06-14 13:01 | Outpatient (BNVA) | payer MEDICARE, SELFPAY | PROVIDERS: PCP Legal Medicine; Referring Provider Legal Medicine; Visit Provider Podiatrist | DX: B35.1 Tinea unguium (principal); Q82.8 Other specified congenital malformations of skin; M25.572 Pain in left ankle and joints of left foot; M79.671 Pain in right foot; M79.672 Pain in left foot | CPT/HCPCS: 11721 ==

== ENCOUNTER 2025-04-02 10:47 | Outpatient (CLI) | payer MEDICARE, SELFPAY ==
--- NOTE | 2025-04-02 10:15 | DI.RAD_ITS ---
Exam(s) XR KNEE RT 4V AP,LAT,JOCELYNE,PAT EXAM: XR KNEE RT 4V AP,LAT,JOCELYNE,PAT CLINICAL HISTORY: eval bilat knee pain. TECHNIQUE: 2D digital imaging was performed. COMPARISON: CR XR KNEE LT 4V AP,LAT,JOCELYNE,PAT from 04/02/2025 FINDINGS: 3 views Findings in the right knee are similar to the left side with isom-yq-huud degenerative narrowing the medial compartment and marginal osteophytes and mild Verus deformity. There is preservation of heigh t of the lateral compartment. Mild degenerative changes in the patellofemoral compartment. There is a moderate-large size joint effusion, also similar to the opposite side Incidentally noted on the lateral view is a bony excrescence off the anterior cortex of the femur at junction of mid and distal thirds. This has benign appearance. IMPRESSION: Advanced osteoarthritic degenerative jaqc-[id number] narrowing of the medial compartment with mild varus deformity. Joint effusion noted. Findings in this knee are almost identical to what is seen in the opposite knee. DATA REPOSITORY: RADIATION DOSE DELIVERED:
--- NOTE | 2025-04-02 10:15 | DI.RAD_ITS ---
Exam(s) XR KNEE LT 4V AP,LAT,JOCELYNE,PAT EXAM: XR KNEE LT 4V AP,LAT,JOCELYNE,PAT CLINICAL HISTORY: eval left knee pain. TECHNIQUE: 2D digital imaging was performed. COMPARISON: No exams were available for comparison FINDINGS: Four views: No evidence of fracture but there is a joint effusion evident moderate-large size. There is degenerative dkbz-oz-usmp narrowing of the medial compartment as well as marginal osteophyte s. There is relative preservation of height of the lateral compartment. There are mild degenerative changes in the patellofemoral compartment. No significant osseous lesions evident. 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 Mild Verus deformity. Joint effusion noted. DATA REPOSITORY: RADIATION DOSE DELIVERED:
== END 2025-04-02 10:48 | disposition home or self-care (01) ==
LOC: DIORS 10:47
PROVIDERS: PCP Legal Medicine; Referring Provider Legal Medicine; Visit Provider Student in an Organized Health Care Education/Training Program
DX: M17.0 Bilateral primary osteoarthritis of knee (principal)
CPT/HCPCS: 99214; 73564

== ENCOUNTER → 2025-04-23 14:51 | Outpatient (BNVA) | payer MEDICARE, SELFPAY | PROVIDERS: PCP Legal Medicine; Referring Provider Legal Medicine | DX: M17.0 Bilateral primary osteoarthritis of knee (principal) | CPT/HCPCS: 20610; J1010 ==

== ENCOUNTER 2025-05-01 16:00 | Outpatient (REF) | payer MEDICARE, SELFPAY ==
--- NOTE | 2025-05-01 15:40 | PAPFT_PTH ---
PATIENT: Renu Mackey LOC: [facility] U#:[id number] AGE/SX: 74/F ROOM: RE05/01/[address]: Emma Mei DO : 1950 BED: DIS: 05/01/2025 SPEC #: [id number] RECD: 05/02/25 09:46 STATUS: FOZIA REQ #: [id number] LORELEI: 05/01/25 15:[address]: Emma Mei DEPT: [facility] Cytology RECD BY: Joanna Juarez ENTERED: 05/02/25 09:47 SP TYPE: PAPFT OTHR DR: Ann Perdue Tissues: 1 - CX/ENDOCX FOR PAP SMEARS Procedures: PAP THIN PREP/[facility] Screening HPV DNA PROBE Comments: [id number] (HPV 16 & 18/45)
== END 2025-05-01 16:01 | disposition home or self-care (01) ==
LOC: LBN 16:00
PROVIDERS: PCP Legal Medicine; Visit Provider Obstetrics & Gynecology
DX: Z11.51 Encounter for screening for human papillomavirus (HPV) (principal); Z01.419 Encounter for gynecological examination (general) (routine) without abnormal findings
CPT/HCPCS: 88142; 87624

== ENCOUNTER 2025-05-23 02:24 | Outpatient (CLI) | payer MEDICARE, SELFPAY ==
--- NOTE | 2025-05-23 07:45 | DI.MAMMO_ITS ---
Exam(s) MAMMO SCREENING EXAM: MAMMO SCREENING CLINICAL HISTORY: screening TECHNIQUE: Mammograms were interpreted according to the usual protocol including computer analysis with CAD system, tomosynthesis and C-view imaging. COMPARISON: 2015 through 2023 FINDINGS: The breasts are composed of scattered fibroglandular densities, Breast Density category B. No suspicious masses or suspicious microcalcifications are seen. No skin thickening or abnormal axillary lymph nodes are seen. There has been no significant change from prior exams. IMPRESSION: BI-RADS Category 1, Negative mammogram Yearly screening mammography is recommended. Breast Density - Category B - There are scattered areas of fibroglandular density. Breast density Category C or D implies that the patient has dense breast tissue. Dense breast tissue can make it harder to find cancer on a mammogram. Dense breast tissue is also associated with an increased risk of breast cancer. This information about the result of the mammogram report was provided to the patient to raise their awareness. Use this report when you speak with the patient about their risks for breast cancer, which includes their family history. At that time, you may recommend additional screening tests (Ultrasound or MRI) as these tests may add significant information. A negative radiographic report should not delay biopsy if a dominant or clinically suspicious mass is present. Up to ten percent of cancers are not identified on mammography. A negative report may reinforce clinical impression. Adenosis and dense breasts may obscure an underlying neoplasm. False positive reports average 6 to 10%. Patient will receive a letter notifying them of these results.
== END 2025-05-23 02:44 ==
LOC: DI 02:24
PROVIDERS: PCP Legal Medicine; Visit Provider Obstetrics & Gynecology
DX: Z12.31 Encounter for screening mammogram for malignant neoplasm of breast (principal); R92.323 Mammographic fibroglandular density, bilateral breasts
CPT/HCPCS: 77063; 77067

== ENCOUNTER → 2025-06-04 10:45 | Outpatient (BNVA) | payer MEDICARE, SELFPAY | PROVIDERS: PCP Legal Medicine; Referring Provider Legal Medicine; Visit Provider Student in an Organized Health Care Education/Training Program | DX: M17.0 Bilateral primary osteoarthritis of knee (principal) | CPT/HCPCS: 99213; 99214 ==

== ENCOUNTER → 2025-10-01 09:55 | Outpatient (BNVA) | payer MEDICARE, SELFPAY | PROVIDERS: PCP Legal Medicine; Referring Provider Legal Medicine; Visit Provider Student in an Organized Health Care Education/Training Program | DX: M17.0 Bilateral primary osteoarthritis of knee (principal); Z86.73 Personal history of transient ischemic attack (TIA), and cerebral infarction without residual deficits | CPT/HCPCS: 99214 ==